=== PATIENT | male | born 1950 | race African-American/Black ===

== ENCOUNTER 2019-05-07 13:34 | Inpatient (IN) | payer MEDICARE, MEDICAID ==
[~2019-05-07] VITALS: Ht 182.9 cm; Wt 64.4 kg
[2019-05-07 15:15] VITALS: BP 130/76
--- NOTE | 2019-05-07 15:16 | NUR ---
ED Nurse Note: ERMD at bedside
--- NOTE | 2019-05-07 15:19 | NUR ---
ED Nurse Note: Pt BIBA for failure to thrive per facility MD. Pt VSS, pt aao x 1; ems stated that pt was able to eat full meal prior to arriving at ED. Pt came home skilled nursing facility. Awaiting ERMD at bedside. Pt states that he does not wish to be in ED; resistive to care.
[2019-05-07] MEDS ORDERED: LORazepam Inj 2mg/ml 1ml IM ONE (15:30)
--- NOTE | 2019-05-07 15:32 | Emergency Room Report ---
History of Present Illness General Chief Complaint: General Complaint Source: Medical Record, EMS Present Illness HPI Patient is a 68-year-old male past medical history of hypertension, dementia, hyperlipidemia, anemia, depression, anxiety, schizophrenia, bipolar disorder and Parkinson's disease who was brought in from his extended care facility by EMS for failure to thrive. Per EMS patient has had unintentional weight loss and primary physician sent him in for work-up including cancer rule out. Unable to obtain further history from the patient as he is minimally verbal in the emergency room. COVID-19 risk:Travel to affect: No Has patient experienced patino: No Allergies: Coded Allergies: No Known Allergies (Unverified , 05/07/19) Patient History Past Medical History: other - Hypertension, dementia, hyperlipidemia, anemia, depression, anxiety, schizophrenia, bipolar disorder, Parkinson's disease Past Surgical History: none - Per chart review Nursing Documentation-PMH Hx Hypertension: Yes Review of Systems All Other Systems: limited Physical Exam Vital Signs Date Time Temp Pulse Resp B/P (MAP) Pulse Ox O2 Delivery O2 Flow Rate FiO2 05/07/19 13:39 98.8 72 16 130/76 (94) 97 Room Air Sp02 EP Interpretation: reviewed, normal General Appearance: no apparent distress, alert, non-toxic, other - Constant involuntary movements Head: normocephalic, atraumatic Eyes: bilateral eye normal inspection, bilateral eye PERRL ENT: hearing grossly normal, normal pharynx, no angioedema Neck: full range of motion, supple/symm/no masses Respiratory: chest non-tender, lungs clear, normal breath sounds, speaking full sentences Cardiovascular #1: regular rate, rhythm, no edema Gastrointestinal: normal bowel sounds, non tender, soft, non-distended, no guarding, no rebound Rectal: deferred Genitourinary: normal inspection, no CVA tenderness Musculoskeletal: back normal, normal range of motion, calf tenderness, non- tender Skin: no rash Lymphatic: no adenopathy Medical Decision Making Diagnostic Impression: Primary Impression: Failure to thrive Additional Impression: Weight loss ER Course Patient was uncooperative initially with laboratory testing. Patient given 2 mg of IV Ativan which helped his un-voluntary movements. He is resting comfortably in bed. Labs demonstrate no significant acute abnormalities. Patient to be admitted for further treatment and evaluation of his failure to thrive and unexplained weight loss. EKG Diagnostic Results EKG Time: 16:59 EP Interpretation: MD Shabana Rate: bradycardiac Rhythm: other - sinus bradycardia ST Segments: no acute changes ASA given to the pt in ED: No Last Vital Signs Date Time Temp Pulse Resp B/P (MAP) Pulse Ox O2 Delivery O2 Flow Rate FiO2 05/07/19 15:15 72 16 Room Air 05/07/19 15:15 98.8 130/76 97 Disposition: PLACE IN OBSERVATION Condition: Critical Physician Consult: Lori De Jesus M.D. May 07, 2019 15:32
[2019-05-07] MEDS ORDERED: Haloperidol 5mg/ml Inj IM ONE (16:00)
--- NOTE | 2019-05-07 16:00 | NUR ---
ED Nurse Note: all medications administered; pt tolerated well. no s/s of distress noted. no adverse reactions noted.
--- NOTE | 2019-05-07 16:15 | Diagnostic Imaging Report ---
Indication: Dyspnea Comparison: None A single view chest radiograph was obtained. Findings: No definite infiltrate or pulmonary vascular congestion identified. The heart is enlarged. The aorta is mildly enlarged consistent with atherosclerotic vascular disease. The bones are osteopenic. There are thoracic vertebral enthesophytes at multiple levels. Impression: No acute disease
--- NOTE | 2019-05-07 16:30 | NUR ---
ED Nurse Note: all blood work completed and sent to lab
[2019-05-07 17:21] LABS: ANION GAP 7 mmol/L (5-15); BLOOD UREA NITROGEN 20 mg/dL (7-18); CALCIUM 9.6 MG/DL (8.5-10.1); CARBON DIOXIDE 32 MMOL/L (21-32); CHLORIDE 109 MMOL/L (98-107); CREATININE 0.7 MG/DL (0.55-1.30); POTASSIUM 4.1 MMOL/L (3.5-5.1); SODIUM 147 MMOL/L (136-145)
[2019-05-07 17:27] LABS: BASOPHILS % (AUTO) 2.2 % (0.0-2.0); EOSINOPHILS % (AUTO) 5.1 % (0.0-3.0); HEMATOCRIT 41.7 % (42.0-52.0); HEMOGLOBIN 13.6 G/DL (14.2-18.0); LYMPHOCYTES % (AUTO) 32.5 % (20.0-45.0); MEAN CORPUSCULAR VOLUME 95 FL (80-99); MONOCYTES % (AUTO) 4.8 % (1.0-10.0); NEUTROPHILS % (AUTO) 55.3 % (45.0-75.0); PLATELET COUNT 188 K/UL (150-450); RED CELL DISTRIBUTION WIDTH 14.6 % (11.6-14.8); WHITE BLOOD COUNT 4.8 K/UL (4.8-10.8)
[2019-05-07 17:33] LABS: ALANINE AMINOTRANSFERASE 37 U/L (12-78); ALBUMIN/GLOBULIN RATIO 1.3 (1.0-2.7); ALKALINE PHOSPHATASE 87 U/L (46-116); ASPARTATE AMINO TRANSFERASE 28 U/L (15-37); BILIRUBIN,TOTAL 0.9 MG/DL (0.2-1.0); CREATINE KINASE 184 U/L (26-308)
--- NOTE | 2019-05-07 18:46 | NUR ---
ED Nurse Note: pt sleeping in bed, vss no s/s of distress noted.
[2019-05-07 19:05] VITALS: BP 131/70
--- NOTE | 2019-05-07 19:05 | NUR ---
ED Nurse Note: Received report from Debbie CORTES. Pt seen sleeping in bed. Breathing even and unlabored. No SOB.
[2019-05-07] MEDS ORDERED: ASPIRIN81 MG ORAL (20:20)
[2019-05-07] MEDS ORDERED: MIRTAZAPINE7.5 MG ORAL (20:20)
[2019-05-07] MEDS ORDERED: BENZTROPINE MESY1 MG ORAL (20:20)
[2019-05-07] MEDS ORDERED: DEPAKOTE250 MG PO (20:20)
[2019-05-07] MEDS ORDERED: ATORVASTATIN CA20 MG ORAL (20:20)
[2019-05-07] MEDS ORDERED: LEVOCARNITINE MC (20:20)
[2019-05-07] MEDS ORDERED: SEROQUEL100 MG ORAL (20:20)
[2019-05-07] MEDS ORDERED: LEXAPRO10 MG ORAL (20:20)
--- NOTE | 2019-05-07 20:23 | NUR ---
ED Nurse Note: Pt unable to provide urine specimen. Will cont to encourage.
--- NOTE | 2019-05-07 21:35 | NUR ---
TRANSFER TO FLOOR: Patient transferred to as ordered, per Dr Sprague. Report given to SEBASTIAN Franks. Belongings and medications given to . Family and or S/O informed of transfer.
[2019-05-07 21:42] LABS: APPEARANCE,URINE CLEAR; BILIRUBIN, URINE NEGATIVE (NEGATIVE); COLOR,URINE PALE YELLOW; GLUCOSE, URINE (UA) NEGATIVE (NEGATIVE); KETONES,URINE NEGATIVE (NEGATIVE); LEUKOCYTE ESTERASE ,URINE NEGATIVE (NEGATIVE); NITRITE,URINE NEGATIVE (NEGATIVE); PH,URINE 6.5 (4.5-8.0); PROTEIN,URINE NEGATIVE (NEGATIVE); UROBILINOGEN,URINE NORMAL MG/DL (0.0-1.0)
[2019-05-07] MEDS ORDERED: Acetaminophen 500mg (ES) tab ORAL PRN (23:00)
[2019-05-07 23:30] VITALS: BP 115/67
[2019-05-07] MEDS ORDERED: MULTIVITAMINS1 EAC2 ORAL (23:31)
[2019-05-07] MEDS ORDERED: MILK OF MA2400 MG/10 ORAL (23:31)
[2019-05-07] MEDS ORDERED: MYLANTA MAXIMU355 ML PO (23:31)
[2019-05-07] MEDS ORDERED: AMLODIPINE BESY10 MG ORAL (23:31)
[2019-05-07] MEDS ORDERED: Milk of Magnesia 30ml Ud ORAL PRN (23:45)
--- NOTE | 2019-05-08 02:44 | NUR ---
NURSE NOTES: Received patient from ER via gurney assisted by a staff. Patient doesn't talk when being asked. No signs of pain. No SOB noted. With IV on the right AC g.20. Patient is a fall risk. Put patient in yellow gown, yellow socks, education done. Charge nurse made aware. Spoke with Dr. Sprague, obtained admission orders and carried out. Patient moved to a room closer to nursing station. Instructed to use call light for assistance. Call light in reach. Bed in lowest, lock engaged and alarm on.
[2019-05-08 04:00] VITALS: BP 114/70
--- NOTE | 2019-05-08 05:27 | NUR ---
NURSE NOTES: Patient walked to the bathroom couple times, assistance needed. Safety measures done at all times. Encouraged pt the use of urinal.
--- NOTE | 2019-05-08 05:50 | NUR ---
NURSE NOTES: Patient refused blood draw per lab staff.
--- NOTE | 2019-05-08 06:56 | Consultation ---
History of Present Illness General Chief Complaint: General Complaint Present Illness Allergies: Coded Allergies: No Known Allergies (Unverified , 05/07/19) Medication History Scheduled Amlodipine Besylate* (Amlodipine Besylate*), 10 MG ORAL DAILY, (Reported) Aspirin* (Aspirin*), 81 MG ORAL DAILY, (Reported) Atorvastatin Calcium* (Atorvastatin Calcium*), 20 MG ORAL BEDTIME, (Reported) Benztropine Mesylate* (Benztropine Mesylate*), 0.5 MG ORAL BID, (Reported) Divalproex Sodium* (Depakote*), 125 MG PO Q12HR, (Reported) Escitalopram Oxalate* (Lexapro*), 10 MG ORAL DAILY, (Reported) Levocarnitine (Levocarnitine), 330 GM MC TID, (Reported) Mirtazapine* (Mirtazapine*), 7.5 MG ORAL BEDTIME, (Reported) Multivitamins* (Multivitamins*), 1 TAB ORAL DAILY, (Reported) Quetiapine Fumarate* (Seroquel*), 100 MG ORAL HS, (Reported) Scheduled PRN Mag Hydrox/Aluminum Hyd/Simeth (Mylanta Maximum Strength Liq), 30 ML PO EVERY 4 HOURS PRN for GI Distress, (Reported) Magnesium Hydroxide* (Milk Of Magnesia*), 30 ML ORAL DAILY PRN for Constipation, (Reported) Patient History Healthcare decision maker Resuscitation status Full Code Advanced Directive on File Physical Exam Last 24 Hour Vital Signs Date Time Temp Pulse Resp B/P (MAP) Pulse Ox O2 Delivery O2 Flow Rate FiO2 05/08/19 04:00 98.6 61 18 114/70 (85) 98 05/08/19 00:40 Room Air 05/07/19 23:30 97.3 52 20 115/67 (83) 100 05/07/19 21:35 97.9 81 19 131/70 98 Room Air 05/07/19 19:05 97.9 81 19 131/70 98 Room Air 05/07/19 15:15 72 16 Room Air 05/07/19 15:15 98.8 72 16 130/76 97 Room Air 05/07/19 13:39 98.8 72 16 130/76 (94) 97 Room Air Intake and Output 05/07/19 05/08/19 19:00 07:00 Intake Total 1000 ml Balance 1000 ml Intake Oral 0 ml IV Total 1000 ml # Voids 3 Laboratory Tests Test 05/07/19 16:40 05/07/19 21:33 White Blood Count 4.8 K/UL (4.8-10.8) Red Blood Count 4.40 M/UL (4.70-6.10) L Hemoglobin 13.6 G/DL (14.2-18.0) L Hematocrit 41.7 % (42.0-52.0) L Mean Corpuscular Volume 95 FL (80-99) Mean Corpuscular Hemoglobin 30.9 PG (27.0-31.0) Mean Corpuscular Hemoglobin Concent 32.7 G/DL (32.0-36.0) Red Cell Distribution Width 14.6 % (11.6-14.8) Platelet Count 188 K/UL (150-450) Mean Platelet Volume 9.0 FL (6.5-10.1) Neutrophils (%) (Auto) 55.3 % (45.0-75.0) Lymphocytes (%) (Auto) 32.5 % (20.0-45.0) Monocytes (%) (Auto) 4.8 % (1.0-10.0) Eosinophils (%) (Auto) 5.1 % (0.0-3.0) H Basophils (%) (Auto) 2.2 % (0.0-2.0) H Prothrombin Time 10.6 SEC (9.30-11.50) Prothromb Time International Ratio 1.0 (0.9-1.1) Activated Partial Thromboplast Time 27 SEC (23-33) Sodium Level 147 MMOL/L (136-145) H Potassium Level 4.1 MMOL/L (3.5-5.1) Chloride Level 109 MMOL/L (98-107) H Carbon Dioxide Level 32 MMOL/L (21-32) Anion Gap 7 mmol/L (5-15) Blood Urea Nitrogen 20 mg/dL (7-18) H Creatinine 0.7 MG/DL (0.55-1.30) Estimat Glomerular Filtration Rate > 60 mL/min (>60) Glucose Level 101 MG/DL (74-106) Lactic Acid Level 0.90 mmol/L (0.4-2.0) Calcium Level 9.6 MG/DL (8.5-10.1) Magnesium Level 2.2 MG/DL (1.8-2.4) Total Bilirubin 0.9 MG/DL (0.2-1.0) Aspartate Amino Transf (AST/SGOT) 28 U/L (15-37) Alanine Aminotransferase (ALT/SGPT) 37 U/L (12-78) Alkaline Phosphatase 87 U/L (46-116) Total Creatine Kinase 184 U/L (26-308) Troponin I 0.000 ng/mL (0.000-0.056) Pro-B-Type Natriuretic Peptide 49 pg/mL (0-125) Total Protein 7.0 G/DL (6.4-8.2) Albumin 4.0 G/DL (3.4-5.0) Globulin 3.0 g/dL Albumin/Globulin Ratio 1.3 (1.0-2.7) Urine Color Pale yellow Urine Appearance Clear Urine pH 6.5 (4.5-8.0) Urine Specific Mallie 1.010 (1.005-1.035) Urine Protein Negative (NEGATIVE) Urine Glucose (UA) Negative (NEGATIVE) Urine Ketones Negative (NEGATIVE) Urine Blood Negative (NEGATIVE) Urine Nitrite Negative (NEGATIVE) Urine Bilirubin Negative (NEGATIVE) Urine Urobilinogen Normal MG/DL (0.0-1.0) Urine Leukocyte Esterase Negative (NEGATIVE) Microbiology Date/Time Source Procedure Growth Status 05/07/19 16:40 Nasal Nares - Final Complete 05/07/19 16:40 Nasal Nares - Final Complete Height (Feet): 6 Height (Inches): 0.00 Weight (Pounds): 142 Medications Current Medications Medications (Trade) Dose Ordered Sig/Alley Route PRN Reason Start Time Stop Time Status Last Admin Dose Admin Acetaminophen (Tylenol) 500 mg Q4H PRN ORAL Mild Pain/Temp > 100.5 05/07/19 23:00 06/06/19 22:59 Al Hydroxide/Mg Hydroxide (Mylanta) 30 ml Q4H PRN ORAL GI distress 05/07/19 23:45 06/06/19 23:44 Amlodipine Besylate (Norvasc) 10 mg DAILY ORAL 05/08/19 09:00 06/07/19 08:59 Aspirin (ASA) 81 mg DAILY ORAL 05/08/19 09:00 06/22/19 08:59 Atorvastatin Calcium (Lipitor) 20 mg BEDTIME ORAL 05/08/19 21:00 08/06/19 20:59 Benztropine Mesylate (Cogentin) 0.5 mg BID ORAL 05/08/19 09:00 06/07/19 08:59 Divalproex Sodium (Depakote) 125 mg Q12HR ORAL 05/08/19 09:00 06/07/19 08:59 Escitalopram Oxalate (Lexapro) 10 mg DAILY ORAL 05/08/19 09:00 06/07/19 08:59 Levocarnitine (L-Carnitine) 330 mg TID ORAL 05/08/19 09:00 08/06/19 08:59 Magnesium Hydroxide (Mom) 30 ml DAILY PRN ORAL Constipation 05/07/19 23:45 06/06/19 23:44 Mirtazapine (Remeron) 7.5 mg BEDTIME ORAL 05/08/19 21:00 08/06/19 20:59 Multivitamins (Multivitamins) 1 tab DAILY ORAL 05/08/19 09:00 06/07/19 08:59 Quetiapine Fumarate (SEROqueL) 100 mg BEDTIME ORAL 05/08/19 21:00 06/22/19 20:59 Sodium Chloride 1,000 ml @ 60 mls/hr [id number] IV 05/07/19 23:15 06/06/19 23:14 05/08/19 00:10 Vitamin D (Vitamin D) 2,000 intlu DAILY ORAL 05/08/19 09:00 06/07/19 08:59 Assessment/Plan Assessment/Plan: Hematology Consultation REQ MD: Yevgeniy Chatterjee Chief Complaint: General Complaint RFC: Anemia eval, ftt DOS: 05/08/2019 ID Patient is a 68-year-old male past medical history of hypertension, dementia, hyperlipidemia, anemia, depression, anxiety, schizophrenia, bipolar disorder and Parkinson's disease who was brought in from his extended care facility by EMS for failure to thrive. Per EMS patient has had unintentional weight loss and primary physician sent him in for work-up including cancer rule out. Unable to obtain further history from the patient as he is minimally verbal in the emergency room. He is very resistive to care, I tried to talk to him re getting a ct scan but he is refusing and yelling at me, also refusing labs. COVID-19 risk:Travel to affect: No Has patient experienced patino: No Allergies: Coded Allergies: No Known Allergies (Unverified , 05/07/19) Past Medical History: other - Hypertension, dementia, hyperlipidemia, anemia, depression, anxiety, schizophrenia, bipolar disorder, Parkinson's disease Past Surgical History: none - Per chart review Nursing Documentation-PMH Hx Hypertension: Yes Review of systems: difficult to obtain PE Vitals: reviewed, normal General Appearance: no apparent distress, alert, non-toxic, other - Constant involuntary movements HEENT: nc, at Neck: full range of motion, supple/symm/no masses, supple Resp: chest non-tender, lungs clear, normal breath sounds Cv: regular rate, rhythm, no edema Gi: normal bowel sounds, non tender, soft, non-distended Rectal: deferred Genitourinary: normal inspection, no CVA tenderness Lymphatic: no adenopathy Labs: noted Imaging: reviewed Assessment and Recs: # Failure to thrive --> has had recent weight loss, will need further eval but is currently refusing --> will attempt at a ct c/a/p but again refusing --> tumor markers ordered --> daily weights as needed --> PT daily --> monitor if needs mirtazapine # Anemia of chronic disease --> labs have been noted --> no bleeding at this time --> consider transf as needed --> no hemolysis is seen # Noncompliance/uncooperative initially with laboratory testing. --> again stressed importance of workup, he refuses --> Patient given 2 mg of IV Ativan which helped his un-voluntary movements. # Sinus bradycardia --> further w/u as needed per cards # Hypernatremia --> per Dr. Alejandre # Azotemia --> recommend ivf Staff and rn, appreciate consultation Jovanny Hawkins MD May 08, 2019 06:56
[2019-05-08] MEDS ORDERED: Omnipaque-300 100ml vial INJ PRN (07:00)
--- NOTE | 2019-05-08 07:25 | NUR ---
NURSE NOTES: received report from SEBASTIAN Villalba. patient in bed. alert. not answering question. no respiratory distress noted no pain at this time. IV RAC 20 running 1/2ns@60. fall risk. yellow socks. call light within reach. alarm on. educated patient call for assist bathroom. will continue to provide plan of care.
--- NOTE | 2019-05-08 07:41 | NUR ---
HAND-OFF: Report given to SEBASTIAN Sutherland.
--- NOTE | 2019-05-08 07:42 | NUR ---
NURSE NOTES: Endorsed to AM nurse pt is high fall risk.
[2019-05-08 08:00] VITALS: BP 118/74
--- NOTE | 2019-05-08 08:24 | NUR ---
NURSE NOTES: patient refused morning lab and CT scan. Explained risks and benefits. offered several times. patient did not listen. kept saying no. Notified Dr. Hawkins and waiting for further order.
[2019-05-08] MEDS: levOCARNitine 330mg tab ORAL SCH ×3 (09:00→17:28)
[2019-05-08] MEDS: Aspirin Baby 81mg ORAL SCH (09:21)
[2019-05-08] MEDS: Vitamin D 1000 IU Tab ORAL SCH (09:23)
[2019-05-08] MEDS: Benztropine 1mg tab ORAL SCH ×2 (09:23→17:28)
--- NOTE | 2019-05-08 10:10 | NUR ---
NURSE NOTES: Dr. Estrella will see the patient for psy consult.
--- NOTE | 2019-05-08 10:35 | NUR ---
HAND-OFF: Report given to SEBASTIAN Amos.
--- NOTE | 2019-05-08 10:38 | NUR ---
NURSE NOTES: Report received from Koko CORTES. Patient is awake and alert x 1. Assisted patient back to bed after voiding in bathroom. Endorsed to Dandre CORTES that patient is on contact and droplet precautions due to covid 19 rule out. Patient noted to have 20 keith IV in right ac. Fluids not running at moment due to patient being agitated and not staying in bed. Will contact primary for restraints for patient safety due to him being a high fall risk. Patient on room air, does not appear to be in respiratory distress at this time. Bed locked, alarmed, and in lowest position. Call light in reach. Will continue to follow plan of care.
--- NOTE | 2019-05-08 11:44 | NUR ---
RD ASSESSMENT & RECOMMENDATIONS SEE CARE ACTIVITY FOR COMPLETE ASSESSMENT DAILY ESTIMATED NEEDS: Needs based on FTT, Wt loss/ 64kg 30-35 kcals/kg 8281-4947 total kcals 1-1.5 g protein/kg 64-96 g total protein 25-30 mL/kg 6532-2791 total fluid mLs NUTRITION DIAGNOSIS: Increased kcal/prot needs R/T unintentional wt loss as evidenced by pt admitted w/ FTT dx w/ + unintentional wt loss per MD, known amount and time frame. CURRENT DIET:REGULAR + snacks BID in b/w meals + HS PO DIET RECOMMENDATIONS: Liberalized REGULAR/ texture per [employer] or as tolerated ADDITIONAL RECOMMENDATIONS: * Calibrated bedscale wt for accurate CBW, rec daily wt monitoring * Monitor PO intake closely -> Consider Justin Count X 48 hrs when out of isolation/ COVID-19 ruled out -> Observed 100% consumed breakfast on 05/07 AM. * Ensure Enlive BID w/ meals * Snacks BID in b/w meals + HS * MVI x 1 as supplement
[2019-05-08 12:00] VITALS: BP 132/79
--- NOTE | 2019-05-08 12:05 | NUR ---
NURSE NOTES: Patient found to be climbing out of bed. patient no longer in restraints. Patient removed IV. Safely assisted patient to bathroom. Safely assisted patient back to bed. No injury. Restraints reapplied. After several attempts by both Dandre CORTES and Gómez CORTES, no IV access. Doctor Celestine beckman.
--- NOTE | 2019-05-08 13:12 | NUR ---
CASE MANAGEMENT:INITIAL REVIEW 68 YR OLD MALE BIBA FROM [facility] CC;GENERAL COMPLAINT SI;FAILURE TO THRIVE 98.8 52 20 131/70 97% ON RA NA 147 CL 109 BUN 20 UA = NEGATIVE CXR ~ NO ACUTE PROCESS IS;IVF NS BOLUS ATIVAN IM ONCE HALDOL IM ONCE ADMITTED TO MED SURG MED SURG STATUS DCP;FROM [facility]
[2019-05-08] MEDS: LORazepam 1mg tab ORAL PRN ×2 (13:44→20:41)
--- NOTE | 2019-05-08 13:45 | NUR ---
NURSE NOTES: Ativan and Lexapro given per MD orders. Will reassess patients anxiety level.
[2019-05-08 16:00] VITALS: BP 129/88
--- NOTE | 2019-05-08 16:15 | Consultation ---
DATE OF CONSULTATION: 05/08/2019 PULMONARY CONSULTATION HISTORY OF PRESENT ILLNESS: This is a 68-year-old male with history of hypertension, dementia, anemia, schizophrenia, and Parkinson's, who was brought from his extended care facility with a history of failure to thrive. The patient is a very poor historian and unable to provide any history. There is no travel history. The patient denies any cough, shortness of breath. ALLERGIES: None. PAST HISTORY: Dementia, hypertension, hyperlipidemia, anemia, schizophrenia, bipolar disorder, Parkinson's disorder. PAST SURGICAL HISTORY: None reported. HOME MEDICATIONS: Home medications reviewed and reconciled in the chart. It is noted that he is on amlodipine, aspirin, Lipitor, Cogentin, Depakote, Marinol, Lexapro, Remeron, Seroquel, vitamin D, Haldol and Ativan. REVIEW OF SYSTEMS: Unreliable. PHYSICAL EXAMINATION: GENERAL: Reveals a 68-year-old male. HEENT: Unremarkable. VITAL SIGNS: Blood pressure is 118/70, O2 saturation is 96% on room air, heart rate 66, he is afebrile. CHEST: Clear breath sounds bilaterally. HEART: Normal heart sounds. ABDOMEN: Soft. EXTREMITIES: There is no edema. LABORATORY TESTING: Shows normal white count, hemoglobin 13.6. Chemistries showed sodium 147. Coags and urinalysis negative. IMAGING STUDIES: The patient underwent chest x-ray, which showed atelectasis bilaterally. IMPRESSION: 1. Failure to thrive. 2. Hypernatremia. 3. No evidence for pneumonia or concern regarding coronavirus. DISCUSSION: At this time, he is considered low risk for coronavirus. The only risk factor assisted care facility. Defer further documentation per ID specialist. We will follow as director of medical education. Hematology consultation is noted. Maurice Bourgeois M.D. DR: Melissa JOB#: [id number] CC:
--- NOTE | 2019-05-08 17:00 | Consultation ---
DATE OF CONSULTATION: 05/08/2019 INFECTIOUS DISEASES CONSULTATION CONSULTING PHYSICIAN: Jhony Hamlin M.D. PRIMARY ATTENDING PHYSICIAN: Yevgeniy Sprague M.D. REASON FOR CONSULTATION: Isolation precaution. HISTORY OF PRESENT ILLNESS: The patient is a 68-year-old male admitted from long-term for further treatment of weight loss to rule out cancer. During ER evaluation, he was put on isolation for coronavirus disease 19 and test for coronavirus was sent. PAST MEDICAL HISTORY: Significant for dementia, hypertension, hyperlipidemia, schizophrenia, anemia, Parkinson disease. ALLERGIES: No known drug allergies. MEDICATIONS: Atorvastatin, mirtazapine, Seroquel, Marinol, Ativan, Lexapro, amlodipine, aspirin, benztropine, Depakote, multivitamin, sodium chloride, Tylenol. SOCIAL HISTORY: Single. skilled nursing resident. REVIEW OF SYSTEMS: The patient has no complaint, agitated, not very cooperating, taking out the IV line. PHYSICAL EXAMINATION: VITAL SIGNS: Temperature 98.2, pulse 60, blood pressure 132/79. GENERAL APPEARANCE: No acute distress. Seems to be thin. HEART: Normal rate. LUNGS: Clear. ABDOMEN: Soft. EXTREMITIES: No edema. LABORATORY AND DIAGNOSTIC DATA: Sodium 147, potassium 4.1, chloride 109, bicarbonate 30, BUN 20, creatinine 0.7, glucose 101. WBC 4.8, hemoglobin 13.6, hematocrit 41.7, and platelets is 188. Chest x-ray was negative. IMPRESSION: Failure to thrive with weight loss, seems multifactorial, has dementia, psychosis, Parkinson disease, anemia, hyperlipidemia. The patient does not have the criteria for testing and isolation for coronavirus disease 19 so recommendation is to stop airborne isolation. Case was discussed with nurse. At the end of my exam, I thank Dr. Sprague, for involving me in the care of this patient. Jhony Hamlin M.D. DR: Sabina JOB#: [id number] CC: JEFFERY
--- NOTE | 2019-05-08 17:00 | NUR ---
NURSE NOTES: Patient still getting out of bed without calling. Patient calm and more cooperative with staff. Patient less anxious and combative.
--- NOTE | 2019-05-08 17:15 | Consultation ---
DATE OF CONSULTATION: 05/08/2019 CONSULTING PHYSICIAN: Chilango Hunter M.D. CHIEF COMPLAINT: Failure to thrive. HISTORY OF PRESENT ILLNESS: This is a 68-year-old longterm patient, who has numerous medical problems including a history of psychiatric disorder of schizophrenia, bipolar disorder, and depression, was transferred to the hospital for failure to thrive. Since admission, the patient apparently has been diagnosed with COVID-19 positive. Referral for GI was for evaluation of failure to thrive. PAST MEDICAL HISTORY: 1. Hypertension. 2. Hypercholesterolemia. 3. Psychiatric disorder including schizophrenia and depression. 4. Anemia. 5. Dementia. 6. Anxiety. 7. Parkinson disease. FAMILY HISTORY: Noncontributory. PAST SURGICAL HISTORY: None. REVIEW OF SYSTEMS: A 10-point review of systems was performed and pertinent positives in HPI. SOCIAL HISTORY: He currently lives in a longterm. No history of tobacco, alcohol, or drug abuse. PHYSICAL EXAMINATION: VITAL SIGNS: Temperature is 98.8, pulse 66, respirations 18, and blood pressure 118/74. HEENT: Normocephalic and atraumatic. Sclerae anicteric. NECK: Supple. No evidence of obvious lymphadenopathy. CARDIOVASCULAR: Regular rate and rhythm. Plus S1 and S2. LUNGS: Decreased breath sounds bilaterally based on the supine exam. ABDOMEN: Soft, nontender. No rebound. No guarding. No peritoneal sign. EXTREMITIES: No cyanosis, no clubbing, no edema. LABORATORY DATA: White count is 4.8, hemoglobin 13, hematocrit 41, and platelet count 188,000. ASSESSMENT AND PLAN: A 68-year-old male with COVID-19 positive, admitted to the hospital with failure to thrive. Plan at this time, we are going to hold off doing a G-tube placement. We are going to put the patient on Marinol 2.5 mg p.o. t.i.d and increase the dose to 5 mg as tolerated. We are going to order calorie count. The patient to be treated for COVID-19 with supportive care. We will follow the patient on a daily basis and make further recommendation as we go along. Chilango Hunter M.D. DR: ALONDRA JOB#: [id number] CC:
[2019-05-08] MEDS: Dronabinol 2.5mg Cap ORAL SCH (17:28)
--- NOTE | 2019-05-08 18:00 | History and Physical Report ---
DATE OF ADMISSION: 05/07/2019 HISTORY OF PRESENT ILLNESS: The patient is being admitted for failure to thrive, 30 pounds weight loss, for the weight loss workup and failure to thrive. That is the reason the patient got admitted. The patient is a poor historian and agitated. Cannot get any reliable history from the patient. However, denies pain. Denies nausea, vomiting, or diarrhea. No fever or chills. Denies shortness of breath. Denies cough. Again is a poor historian. PAST MEDICAL HISTORY: Psychosis, dementia, hyperlipidemia, mood disorder. PAST SURGICAL HISTORY: None known. ALLERGIES: No known allergies. MEDICATIONS: Lexapro, Depakote, Cogentin, Lipitor, aspirin, amlodipine, mirtazapine, and Seroquel. FAMILY HISTORY: Noncontributory. SOCIAL HISTORY: No history of alcohol or illicit drugs. Comes from a alf. REVIEW OF SYSTEMS: HEENT: Denies headaches. RESPIRATORY: Denies shortness of breath. Denies cough. CARDIOVASCULAR: Denies chest pain. GASTROINTESTINAL: Denies nausea, vomiting, or diarrhea. Does have poor appetite. CENTRAL NERVOUS SYSTEM: Denies any change in speech pattern; however is a very poor historian. Cannot rely upon his history. PHYSICAL EXAMINATION: VITAL SIGNS: Temperature is 98.8, pulse is 66, blood pressure is 118/74. HEENT: PERRLA. NECK: Supple. No lymphadenopathy. CHEST: Clear to auscultation. CARDIOVASCULAR: Regular rate and rhythm. No murmurs or extra sounds. GASTROINTESTINAL: Soft, nontender, nondistended. No organomegaly. EXTREMITIES: No edema. Moves all four extremities. Sensory intact to light touch. Reflexes on both sides. LABORATORY DATA: WBC of 4.8, hemoglobin of 13.6, platelets 188,000. Sodium 147, potassium 4.1, BUN of 20, creatinine 0.7, glucose 101. ASSESSMENT AND PLAN: Weight loss of 30 pounds, failure to thrive. I have consulted Dr. العراقي as well as Dr. Estrella as well as Dr. Hawkins for the workup of agitation and dementia as well as for failure to thrive and weight loss workup to rule out cancer. Yevgeniy Sprague M.D. DR: ROSALINA JOB#: [id number] CC:
--- NOTE | 2019-05-08 19:31 | NUR ---
HAND-OFF: Report given to Jordyn RN. Endorsed that patient is a high fall risk and requires frequent checks. Endorsed that patient is on restraints, no order renewal needed at this time.
[2019-05-08 20:00] VITALS: BP 115/65
--- NOTE | 2019-05-08 20:00 | NUR ---
NURSE NOTES: RECEIVED PATIENT FROM SEBASTIAN HAN. PATIENT IS AWAKE, AAOX1, ON ROOM AIR, NO ACUTE DISTRESS NOTED. PATIENT IS A HIGH FALL RISK, TRY TO GET OUT OF BED. PATIENT IS CURRENTLY ON BILATERAL SOFT WRIST RESTRAINTS, PULSES PRESENT, NO REDNESS NOTED. PATIENT IS PLACED IN ROOM NEAR NURSING STATION, RN COMMUNICATED WITH BOTTOM CRANE OPERATOR AND OTHER STAFF MEMBERS TO FREQUENTLY ROUNDS ON PATIENT. BED IS LOCKED AND LOW, BED ALARMS ACTIVE, SIDE RAILS UP X2, AND CALL LIGHT IS WITHIN REACH. NEW IV ACCESS ESTABLISHED ON RIGHT UPPER ARM, INTACT AND PATENT. PLACED NEW CONDOM CATH ON, INTACT AND DRAINING WELL. WILL CONTINUE TO MONITOR PATIENT CLOSELY.
[2019-05-08] MEDS: Atorvastatin 20mg tab ORAL SCH (20:42)
--- NOTE | 2019-05-08 21:30 | NUR ---
NURSE NOTES: CALLED AND LEFT MESSAGE WITH DR. WRIGHT REGARDING PATIENT'S ISOLATION STATUS. RETURNED CALL AND SPOKE TO CHARGE NURSE CHRISTO. PATIENT IS CLEARED FOR AIRBORNE, DROPLET, AND CONTACT PRECAUTION. CHARGE NURSE CHRISTO COMMUNICATED WITH RADIOLOGY ABOUT ISOLATION STATUS. PATIENT WILL BE NPO AT MIDNIGHT FOR CT CHEST/ABDOMEN WITH CONTRAST IN AM.
--- NOTE | 2019-05-08 21:45 | Consultation ---
DATE OF CONSULTATION: 05/08/2019 CONSULTING PHYSICIAN: Shira Estrella M.D. HISTORY OF PRESENT ILLNESS: The patient is a 68-year-old male with a history of multiple medical issues including dementia, hypertension, depression, anxiety, and schizophrenia who has been admitted to the hospital for medical stabilization. The patient was placed by emergency room doctor on isolation to rule out Coronavirus. The patient's x-ray was not evident of any infiltrates and appeared to be normal. The patient is confused, disoriented. He was agitated earlier. He was given medication. Also placed him on Seroquel and lorazepam. PAST PSYCHIATRIC HISTORY: Depression, dementia. PAST MEDICAL HISTORY: Significant for dementia as well as hypertension, hyperlipidemia, anemia, and Parkinson disease. ALLERGIES: No known drug allergies. SUBSTANCE ABUSE HISTORY: No known history of illicit drug use or alcohol. MENTAL STATUS EXAMINATION: The patient is alert, confused, disoriented. Mood is agitated. Affect is flat. Thought process, there is a paucity of thought content. Thought content, no suicidal or homicidal ideation. Cognition is impaired. Insight and judgment is impaired. ASSESSMENT: [place] I Schizoaffective disorder, bipolar type. Dementia. [place] II Deferred. [place] III As above. [place] IV Low. [place] V 20. PLAN: 1. We will start the patient on Depakote 500 outside of the hospital. 2. Seroquel. 3. Ativan p.r.n. 4. Continue to follow and readjust the medications. Shira Estrella M.D. DR: NEPTALI JOB#: [id number] CC: JEFFERY
[2019-05-09] VITALS: BP 120/68
[2019-05-09 04:00] VITALS: BP 126/64
[2019-05-09] MEDS: LORazepam 1mg tab ORAL PRN (06:07)
--- NOTE | 2019-05-09 06:59 | General Progress Note ---
Assessment/Plan Assessment/Plan: 1. Hypertension. 2. Hypercholesterolemia. 3. Psychiatric disorder including schizophrenia and depression. 4. Anemia. 5. Dementia. 6. Anxiety. 7. Parkinson disease. 8. FTT psych in put appreciated on marinol fu calorie count PEG plans on hold for now Subjective ROS Limited/Unobtainable: Yes Allergies: Coded Allergies: No Known Allergies (Unverified , 05/07/19) Objective Last 24 Hour Vital Signs Date Time Temp Pulse Resp B/P (MAP) Pulse Ox O2 Delivery O2 Flow Rate FiO2 05/09/19 04:00 98.3 76 20 126/64 (84) 98 05/09/19 00:00 98.5 72 18 120/68 (85) 98 05/08/19 21:00 Room Air 05/08/19 20:00 98.0 69 20 115/65 (82) 99 05/08/19 16:03 Room Air 05/08/19 16:00 98.9 62 18 129/88 (102) 99 05/08/19 12:00 98.2 60 18 132/79 (96) 94 05/08/19 09:21 66 118/74 05/08/19 09:00 Room Air 05/08/19 08:00 98.8 66 18 118/74 (89) 98 Intake and Output 05/08/19 05/09/19 19:00 07:00 Intake Total 1040 ml 600 ml Output Total 1 ml Balance 1039 ml 600 ml Intake Oral 800 ml IV Total 240 ml 600 ml Output Stool Total 1 ml # Voids 5 5 # Bowel Movements 1 1 Height (Feet): 6 Height (Inches): 0.00 Weight (Pounds): 142 General Appearance: alert EENT: normal ENT inspection Neck: supple Cardiovascular: normal rate Respiratory/Chest: decreased breath sounds Abdomen: normal bowel sounds, non tender, soft Extremities: non-tender Chilango Hunter MD May 09, 2019 06:59
--- NOTE | 2019-05-09 07:40 | NUR ---
NURSE NOTES: Received patient in bed awake. No SOB or acute distress. IV line intact and patent. HOB elevated. Bed locked in lowest position. Call light within reach. Airborne, droplet and contact precaution observed. Will continue plan of care. Addendum: 05/09/19 at 0844 by Charmaine Hyde RN Above notes intended for a different patient. Received patient in bed asleep. Bilateral wrist restraints on, pulses palpable, no skin issues noted on site. Condom catheter in place. IV line intact and patent. No SOB or acute distress. Kept on NPO post midnight for CT scan of the chest abdomen pelvis but patient did not take the oral contrast, bottle full still at bedside. Tevin of CT scan aware, will hold procedure for now. Dr Hawkins informed, awaiting response. HOB elevated. Bed locked in lowest position. Call light within reach. Will continue plan of care.
--- NOTE | 2019-05-09 07:42 | NUR ---
HAND-OFF: Report given to SEBASTIAN Montano.
[2019-05-09 08:00] VITALS: BP 121/63
--- NOTE | 2019-05-09 08:02 | Hematology/Onc Progress Note ---
Assessment/Plan Assessment/Plan Assessment and Recs: # Failure to thrive --> has had recent weight loss, will need further eval but is currently refusing --> will attempt at a ct c/a/p but again refusing --> tumor markers ordered --> daily weights as needed --> PT daily --> monitor if needs mirtazapine # Anemia of chronic disease --> labs have been noted --> no bleeding at this time --> consider transf as needed --> no hemolysis is seen # Noncompliance/uncooperative initially with laboratory testing. --> again stressed importance of workup, he refuses --> Patient given 2 mg of IV Ativan which helped his un-voluntary movements. # Sinus bradycardia --> further w/u as needed per cards # Hypernatremia --> per Dr. Alejandre # Azotemia --> recommend ivf DW Staff and rn, appreciate consultation Subjective Constitutional: Denies: no symptoms, chills, fever, malaise, weakness, other HEENT: Denies: no symptoms, eye pain, blurred vision, tearing, double vision, ear pain, ear discharge, nose pain, nose congestion, throat pain, throat swelling, mouth pain, mouth swelling, other Cardiovascular: Denies: no symptoms, chest pain, edema, irregular heart rate, lightheadedness, palpitations, syncope, other Respiratory: Denies: no symptoms, cough, shortness of breath, SOB with excertion, SOB at rest, sputum, wheezing, other Gastrointestinal/Abdominal: Denies: no symptoms, abdomen distended, abdominal pain, black stools, tarry stools, blood in stool, constipated, diarrhea, difficulty swallowing, nausea, poor appetite, poor fluid intake, rectal bleeding , vomiting, other Neurologic/Psychiatric: Denies: no symptoms, anxiety, depressed, emotional problems, headache, numbness, paresthesia, pre-existing deficit, seizure, tingling, tremors, weakness, other Endocrine: Denies: no symptoms, excessive sweating, flushing, intolerance to cold, intolerance to heat, increased hunger, increased thirst, increased urine, unexplained weight gain, unexplained weight loss, other Hematologic/Lymphatic: Denies: no symptoms, anemia, easy bleeding, easy bruising, adenopathy, other Allergies: Coded Allergies: No Known Allergies (Unverified , 05/07/19) Subjective 05/08 on marinol, peg still on hold, no bleeding Objective Objective Current Medications Medications (Trade) Dose Ordered Sig/Alley Route PRN Reason Start Time Stop Time Status Last Admin Dose Admin Acetaminophen (Tylenol) 500 mg Q4H PRN ORAL Mild Pain/Temp > 100.5 05/07/19 23:00 06/06/19 22:59 Al Hydroxide/Mg Hydroxide (Mylanta) 30 ml Q4H PRN ORAL GI distress 05/07/19 23:45 06/06/19 23:44 Amlodipine Besylate (Norvasc) 10 mg DAILY ORAL 05/08/19 09:00 06/07/19 08:59 05/08/19 09:21 Aspirin (ASA) 81 mg DAILY ORAL 05/08/19 09:00 06/22/19 08:59 05/08/19 09:21 Atorvastatin Calcium (Lipitor) 20 mg BEDTIME ORAL 05/08/19 21:00 08/06/19 20:59 05/08/19 20:42 Barium Sulfate (Readi-Cat 2) 450 ml NOW PRN ORAL Radiology Procedure 05/08/19 07:00 05/10/19 06:48 Benztropine Mesylate (Cogentin) 0.5 mg BID ORAL 05/08/19 09:00 06/07/19 08:59 05/08/19 17:28 Divalproex Sodium (Depakote) 500 mg Q12HR ORAL 05/08/19 21:00 06/07/19 20:59 05/08/19 20:42 Dronabinol (Marinol) 2.5 mg BID ORAL 05/08/19 18:00 08/06/19 17:59 05/08/19 17:28 Iohexol (OMNIPAQUE-300 100ml) 100 ml ONCE PRN INJ RADIOLOGY 05/08/19 07:00 06/07/19 06:59 Levocarnitine (L-Carnitine) 330 mg TID ORAL 05/08/19 09:00 08/06/19 08:59 05/08/19 17:28 Lorazepam (Ativan) 1 mg Q6H PRN ORAL For Anxiety 05/08/19 13:45 05/15/19 13:44 05/09/19 06:07 Magnesium Hydroxide (Mom) 30 ml DAILY PRN ORAL Constipation 05/07/19 23:45 06/06/19 23:44 Mirtazapine (Remeron) 7.5 mg BEDTIME ORAL 05/08/19 21:00 08/06/19 20:59 05/08/19 20:42 Multivitamins (Multivitamins) 1 tab DAILY ORAL 05/08/19 09:00 06/07/19 08:59 05/08/19 09:22 Quetiapine Fumarate (SEROqueL) 100 mg BEDTIME ORAL 05/08/19 21:00 06/22/19 20:59 05/08/19 20:42 Sodium Chloride 1,000 ml @ 60 mls/hr [id number] IV 05/07/19 23:15 06/06/19 23:14 05/08/19 00:10 Vitamin D (Vitamin D) 2,000 intlu DAILY ORAL 05/08/19 09:00 06/07/19 08:59 05/08/19 09:23 Last 24 Hour Vital Signs Date Time Temp Pulse Resp B/P (MAP) Pulse Ox O2 Delivery O2 Flow Rate FiO2 05/09/19 04:00 98.3 76 20 126/64 (84) 98 05/09/19 00:00 98.5 72 18 120/68 (85) 98 05/08/19 21:00 Room Air 05/08/19 20:00 98.0 69 20 115/65 (82) 99 05/08/19 16:03 Room Air 05/08/19 16:00 98.9 62 18 129/88 (102) 99 05/08/19 12:00 98.2 60 18 132/79 (96) 94 05/08/19 09:21 66 118/74 05/08/19 09:00 Room Air 05/08/19 08:00 98.8 66 18 118/74 (89) 98 05/08/19 04:00 98.6 61 18 114/70 (85) 98 05/08/19 00:40 Room Air 05/07/19 23:30 97.3 52 20 115/67 (83) 100 05/07/19 21:35 97.9 81 19 131/70 98 Room Air 05/07/19 19:05 97.9 81 19 131/70 98 Room Air 05/07/19 15:15 72 16 Room Air 05/07/19 15:15 98.8 72 16 130/76 97 Room Air 05/07/19 13:39 98.8 72 16 130/76 (94) 97 Room Air Intake and Output 05/08/19 05/09/19 19:00 07:00 Intake Total 1040 ml 600 ml Output Total 1 ml Balance 1039 ml 600 ml Intake Oral 800 ml IV Total 240 ml 600 ml Output Stool Total 1 ml # Voids 5 5 # Bowel Movements 1 1 Labs Test 05/07/19 16:40 05/07/19 21:33 White Blood Count 4.8 K/UL (4.8-10.8) Red Blood Count 4.40 M/UL (4.70-6.10) Hemoglobin 13.6 G/DL (14.2-18.0) Hematocrit 41.7 % (42.0-52.0) Mean Corpuscular Volume 95 FL (80-99) Mean Corpuscular Hemoglobin 30.9 PG (27.0-31.0) Mean Corpuscular Hemoglobin Concent 32.7 G/DL (32.0-36.0) Red Cell Distribution Width 14.6 % (11.6-14.8) Platelet Count 188 K/UL (150-450) Mean Platelet Volume 9.0 FL (6.5-10.1) Neutrophils (%) (Auto) 55.3 % (45.0-75.0) Lymphocytes (%) (Auto) 32.5 % (20.0-45.0) Monocytes (%) (Auto) 4.8 % (1.0-10.0) Eosinophils (%) (Auto) 5.1 % (0.0-3.0) Basophils (%) (Auto) 2.2 % (0.0-2.0) Prothrombin Time 10.6 SEC (9.30-11.50) Prothromb Time International Ratio 1.0 (0.9-1.1) Activated Partial Thromboplast Time 27 SEC (23-33) Sodium Level 147 MMOL/L (136-145) Potassium Level 4.1 MMOL/L (3.5-5.1) Chloride Level 109 MMOL/L (98-107) Carbon Dioxide Level 32 MMOL/L (21-32) Anion Gap 7 mmol/L (5-15) Blood Urea Nitrogen 20 mg/dL (7-18) Creatinine 0.7 MG/DL (0.55-1.30) Estimat Glomerular Filtration Rate > 60 mL/min (>60) Glucose Level 101 MG/DL (74-106) Lactic Acid Level 0.90 mmol/L (0.4-2.0) Calcium Level 9.6 MG/DL (8.5-10.1) Magnesium Level 2.2 MG/DL (1.8-2.4) Total Bilirubin 0.9 MG/DL (0.2-1.0) Aspartate Amino Transf (AST/SGOT) 28 U/L (15-37) Alanine Aminotransferase (ALT/SGPT) 37 U/L (12-78) Alkaline Phosphatase 87 U/L (46-116) Total Creatine Kinase 184 U/L (26-308) Troponin I 0.000 ng/mL (0.000-0.056) Pro-B-Type Natriuretic Peptide 49 pg/mL (0-125) Total Protein 7.0 G/DL (6.4-8.2) Albumin 4.0 G/DL (3.4-5.0) Globulin 3.0 g/dL Albumin/Globulin Ratio 1.3 (1.0-2.7) Urine Color Pale yellow Urine Appearance Clear Urine pH 6.5 (4.5-8.0) Urine Specific [place] 1.010 (1.005-1.035) Urine Protein Negative (NEGATIVE) Urine Glucose (UA) Negative (NEGATIVE) Urine Ketones Negative (NEGATIVE) Urine Blood Negative (NEGATIVE) Urine Nitrite Negative (NEGATIVE) Urine Bilirubin Negative (NEGATIVE) Urine Urobilinogen Normal MG/DL (0.0-1.0) Urine Leukocyte Esterase Negative (NEGATIVE) Height (Feet): 6 Height (Inches): 0.00 Weight (Pounds): 142 Objective PE Vitals: reviewed, normal General Appearance: no apparent distress, alert, non-toxic, other - Constant involuntary movements HEENT: nc, at Neck: full range of motion, supple/symm/no masses, supple Resp: chest non-tender, lungs clear, normal breath sounds Cv: regular rate, rhythm, no edema Gi: normal bowel sounds, non tender, soft, non-distended Rectal: deferred Genitourinary: normal inspection, no CVA tenderness Lymphatic: no adenopathy Jovanny Hawkins MD May 09, 2019 08:02
--- NOTE | 2019-05-09 08:56 | NUR ---
NURSE NOTES: May resume diet for now as per Dr Hawkins.
[2019-05-09] MEDS: Aspirin Baby 81mg ORAL SCH (09:07)
[2019-05-09] MEDS: Benztropine 1mg tab ORAL SCH ×3 (09:07→20:14)
[2019-05-09] MEDS: Dronabinol 2.5mg Cap ORAL SCH ×2 (09:08→17:35)
[2019-05-09] MEDS: levOCARNitine 330mg tab ORAL SCH ×3 (09:08→17:36)
[2019-05-09] MEDS: Vitamin D 1000 IU Tab ORAL SCH (09:08)
--- NOTE | 2019-05-09 09:59 | Pulmonology Progress Note ---
Assessment/Plan Assessment/Plan IMPRESSION: 1. Failure to thrive. 2. Hypernatremia. 3. No evidence for pneumonia or concern regarding coronavirus. DISCUSSION: At this time, he is considered low risk for coronavirus. Defer further documentation per ID specialist. I will follow as eyeglass frame truer. Hematology consultation is noted. Maurice Bourgeois M.D. Subjective Interval Events: Looking better Constitutional: Reports: no symptoms HEENT: Repors: no symptoms Respiratory: Reports: no symptoms Cardiovascular: Reports: no symptoms Allergies: Coded Allergies: No Known Allergies (Unverified , 05/07/19) Objective Last 24 Hour Vital Signs Date Time Temp Pulse Resp B/P (MAP) Pulse Ox O2 Delivery O2 Flow Rate FiO2 05/09/19 09:08 63 121/63 05/09/19 08:00 97.2 63 18 121/63 (82) 98 05/09/19 04:00 98.3 76 20 126/64 (84) 98 05/09/19 00:00 98.5 72 18 120/68 (85) 98 05/08/19 21:00 Room Air 05/08/19 20:00 98.0 69 20 115/65 (82) 99 05/08/19 16:03 Room Air 05/08/19 16:00 98.9 62 18 129/88 (102) 99 05/08/19 12:00 98.2 60 18 132/79 (96) 94 Intake and Output 05/08/19 05/09/19 19:00 07:00 Intake Total 1040 ml 600 ml Output Total 1 ml Balance 1039 ml 600 ml Intake Oral 800 ml IV Total 240 ml 600 ml Output Stool Total 1 ml # Voids 5 5 # Bowel Movements 1 1 General Appearance: no acute distress HEENT: normocephalic Respiratory/Chest: chest wall non-tender Cardiovascular: normal peripheral pulses Microbiology Date/Time Source Procedure Growth Status 05/07/19 16:40 Blood Blood Culture - Preliminary NO GROWTH AFTER 24 HOURS Resulted 05/07/19 16:30 Blood Blood Culture - Preliminary NO GROWTH AFTER 24 HOURS Resulted 05/07/19 16:40 Nasal Nares - Final Complete 05/07/19 16:40 Nasal Nares - Final Complete Current Medications Medications (Trade) Dose Ordered Sig/Alley Route PRN Reason Start Time Stop Time Status Last Admin Dose Admin Acetaminophen (Tylenol) 500 mg Q4H PRN ORAL Mild Pain/Temp > 100.5 05/07/19 23:00 06/06/19 22:59 Al Hydroxide/Mg Hydroxide (Mylanta) 30 ml Q4H PRN ORAL GI distress 05/07/19 23:45 06/06/19 23:44 Amlodipine Besylate (Norvasc) 10 mg DAILY ORAL 05/08/19 09:00 06/07/19 08:59 05/09/19 09:08 Aspirin (ASA) 81 mg DAILY ORAL 05/08/19 09:00 06/22/19 08:59 05/09/19 09:07 Atorvastatin Calcium (Lipitor) 20 mg BEDTIME ORAL 05/08/19 21:00 08/06/19 20:59 05/08/19 20:42 Barium Sulfate (Readi-Cat 2) 450 ml NOW PRN ORAL Radiology Procedure 05/08/19 07:00 05/10/19 06:48 Benztropine Mesylate (Cogentin) 0.5 mg BID ORAL 05/08/19 09:00 06/07/19 08:59 05/09/19 09:07 Divalproex Sodium (Depakote) 500 mg Q12HR ORAL 05/08/19 21:00 06/07/19 20:59 05/09/19 09:09 Dronabinol (Marinol) 2.5 mg BID ORAL 05/08/19 18:00 08/06/19 17:59 05/09/19 09:08 Iohexol (OMNIPAQUE-300 100ml) 100 ml ONCE PRN INJ RADIOLOGY 05/08/19 07:00 06/07/19 06:59 Levocarnitine (L-Carnitine) 330 mg TID ORAL 05/08/19 09:00 08/06/19 08:59 05/09/19 09:08 Lorazepam (Ativan) 1 mg Q6H PRN ORAL For Anxiety 05/08/19 13:45 05/15/19 13:44 05/09/19 06:07 Magnesium Hydroxide (Mom) 30 ml DAILY PRN ORAL Constipation 05/07/19 23:45 06/06/19 23:44 Mirtazapine (Remeron) 7.5 mg BEDTIME ORAL 05/08/19 21:00 08/06/19 20:59 05/08/19 20:42 Multivitamins (Multivitamins) 1 tab DAILY ORAL 05/08/19 09:00 06/07/19 08:59 05/09/19 09:08 Quetiapine Fumarate (SEROqueL) 100 mg BEDTIME ORAL 05/08/19 21:00 06/22/19 20:59 05/08/19 20:42 Sodium Chloride 1,000 ml @ 60 mls/hr [id number] IV 05/07/19 23:15 06/06/19 23:14 05/09/19 09:07 Vitamin D (Vitamin D) 2,000 intlu DAILY ORAL 05/08/19 09:00 06/07/19 08:59 05/09/19 09:08 Maurice Bourgeois MD May 09, 2019 09:59
--- NOTE | 2019-05-09 11:23 | Infectious Diseases Prog Note ---
Assessment/Plan Assessment/Plan IMPRESSION & plan: Failure to thrive with weight loss, seems multifactorial, has dementia, psychosis, Parkinson disease, anemia, hyperlipidemia. The patient does not have the criteria for testing and isolation for coronavirus disease 19 so recommendation is to stop airborne isolation. Case was discussed with nurs Subjective ROS Limited/Unobtainable: Yes Neurologic: Reports: confusion, other - on restraint Allergies: Coded Allergies: No Known Allergies (Unverified , 05/07/19) Objective Vital Signs Last 24 Hour Vital Signs Date Time Temp Pulse Resp B/P (MAP) Pulse Ox O2 Delivery O2 Flow Rate FiO2 05/09/19 09:08 63 121/63 05/09/19 09:00 Room Air 05/09/19 08:00 97.2 63 18 121/63 (82) 98 05/09/19 04:00 98.3 76 20 126/64 (84) 98 05/09/19 00:00 98.5 72 18 120/68 (85) 98 05/08/19 21:00 Room Air 05/08/19 20:00 98.0 69 20 115/65 (82) 99 05/08/19 16:03 Room Air 05/08/19 16:00 98.9 62 18 129/88 (102) 99 05/08/19 12:00 98.2 60 18 132/79 (96) 94 Height (Feet): 6 Height (Inches): 0.00 Weight (Pounds): 142 General Appearance: no acute distress HEENT: mucous membranes moist Respiratory/Chest: lungs clear Cardiovascular: normal rate Abdomen: soft, non tender Extremities: no edema Neurologic/Psychiatric: alert, disoriented, other - ? chorea Microbiology Date/Time Source Procedure Growth Status 05/07/19 16:40 Blood Blood Culture - Preliminary NO GROWTH AFTER 24 HOURS Resulted 05/07/19 16:30 Blood Blood Culture - Preliminary NO GROWTH AFTER 24 HOURS Resulted 05/07/19 16:40 Nasal Nares - Final Complete 05/07/19 16:40 Nasal Nares - Final Complete Current Medications Medications (Trade) Dose Ordered Sig/Alley Route PRN Reason Start Time Stop Time Status Last Admin Dose Admin Acetaminophen (Tylenol) 500 mg Q4H PRN ORAL Mild Pain/Temp > 100.5 05/07/19 23:00 06/06/19 22:59 Al Hydroxide/Mg Hydroxide (Mylanta) 30 ml Q4H PRN ORAL GI distress 05/07/19 23:45 06/06/19 23:44 Amlodipine Besylate (Norvasc) 10 mg DAILY ORAL 05/08/19 09:00 06/07/19 08:59 05/09/19 09:08 Aspirin (ASA) 81 mg DAILY ORAL 05/08/19 09:00 06/22/19 08:59 05/09/19 09:07 Atorvastatin Calcium (Lipitor) 20 mg BEDTIME ORAL 05/08/19 21:00 08/06/19 20:59 05/08/19 20:42 Barium Sulfate (Readi-Cat 2) 450 ml NOW PRN ORAL Radiology Procedure 05/08/19 07:00 05/10/19 06:48 Benztropine Mesylate (Cogentin) 0.5 mg BID ORAL 05/08/19 09:00 06/07/19 08:59 05/09/19 09:07 Divalproex Sodium (Depakote) 500 mg Q12HR ORAL 05/08/19 21:00 06/07/19 20:59 05/09/19 09:09 Dronabinol (Marinol) 2.5 mg BID ORAL 05/08/19 18:00 08/06/19 17:59 05/09/19 09:08 Iohexol (OMNIPAQUE-300 100ml) 100 ml ONCE PRN INJ RADIOLOGY 05/08/19 07:00 06/07/19 06:59 Levocarnitine (L-Carnitine) 330 mg TID ORAL 05/08/19 09:00 08/06/19 08:59 05/09/19 09:08 Lorazepam (Ativan) 1 mg Q6H PRN ORAL For Anxiety 05/08/19 13:45 05/15/19 13:44 05/09/19 06:07 Magnesium Hydroxide (Mom) 30 ml DAILY PRN ORAL Constipation 05/07/19 23:45 06/06/19 23:44 Mirtazapine (Remeron) 7.5 mg BEDTIME ORAL 05/08/19 21:00 08/06/19 20:59 05/08/19 20:42 Multivitamins (Multivitamins) 1 tab DAILY ORAL 05/08/19 09:00 06/07/19 08:59 05/09/19 09:08 Quetiapine Fumarate (SEROqueL) 100 mg BEDTIME ORAL 05/08/19 21:00 06/22/19 20:59 05/08/19 20:42 Sodium Chloride 1,000 ml @ 60 mls/hr [id number] IV 05/07/19 23:15 06/06/19 23:14 05/09/19 09:07 Vitamin D (Vitamin D) 2,000 intlu DAILY ORAL 05/08/19 09:00 06/07/19 08:59 05/09/19 09:08 Jhony Hamlin MD May 09, 2019 11:23
[2019-05-09 12:00] VITALS: BP 121/69
--- NOTE | 2019-05-09 13:13 | NUR ---
CASE MANAGEMENT:REVIEW SI;FAILURE TO THRIVE W/WEIGHT LOSS 98.5 76 20 126/64 98% ON RA NO LABS AVAILABLE IS;REMERON PO HS SEROQUEL PO HS DEPAKOTE PO Q12 HRS MARINOL PO BID ASA PO QD LEVOCARNITINE PO TID IVF NS @ 60 ML/HR MED SURG STATUS DCP;FROM [facility] PLAN OF CARE; CANCER RULE OUT, TUMOR MARKERS ORDERED POSSIBLE PEG DAILY PT
--- NOTE | 2019-05-09 14:10 | NUR ---
NURSE NOTES: Spoke with CT scan staff, said to do CT scan of chest, abdomen and pelvis tomorrow. For NPO post midnight tonight 05/09.
[2019-05-09 16:00] VITALS: BP 141/79
--- NOTE | 2019-05-09 19:20 | NUR ---
NURSE NOTES: Received patient in bed. Awake, alert x1. On room air, respirations unlabored. On bilateral soft wrist restraints, hands are warm and normal color for ethnicity. Condom catheter off, d/c per patient. SCD in place. IV in the right upper arm, site intact. Side rails padded. Patient sitting in semi-fowlers, bed rails up x2, bed locked, bed alarm on. Call light within reach.
--- NOTE | 2019-05-09 19:20 | NUR ---
NURSE NOTES: Patient for NPO post midnight except meds and ice chips, for CT chest abdomen pelvis tomorrow.
--- NOTE | 2019-05-09 19:34 | NUR ---
HAND-OFF: Report given to
[2019-05-09 20:00] VITALS: BP 117/71
[2019-05-09] MEDS: Atorvastatin 20mg tab ORAL SCH (20:15)
--- NOTE | 2019-05-09 20:52 | General Progress Note ---
Assessment/Plan Problem List: (1) Failure to thrive SNOMED: 81853098 Status: progressing Assessment/Plan: FTT wt loss work up in progross agitated psych patient afebrile Subjective ROS Limited/Unobtainable: Yes Allergies: Coded Allergies: No Known Allergies (Unverified , 05/07/19) Objective Last 24 Hour Vital Signs Date Time Temp Pulse Resp B/P (MAP) Pulse Ox O2 Delivery O2 Flow Rate FiO2 05/09/19 20:00 98.0 81 20 117/71 (86) 99 05/09/19 18:52 Room Air 05/09/19 16:00 98.4 87 20 141/79 (99) 97 05/09/19 12:00 97.9 77 18 121/69 (86) 98 05/09/19 09:08 63 121/63 05/09/19 09:00 Room Air 05/09/19 08:00 97.2 63 18 121/63 (82) 98 05/09/19 04:00 98.3 76 20 126/64 (84) 98 05/09/19 00:00 98.5 72 18 120/68 (85) 98 05/08/19 21:00 Room Air Intake and Output 05/08/19 05/09/19 19:00 07:00 Intake Total 1040 ml 600 ml Output Total 1 ml Balance 1039 ml 600 ml Intake Oral 800 ml IV Total 240 ml 600 ml Stool Total 1 ml # Voids 5 5 # Bowel Movements 1 1 Height (Feet): 6 Height (Inches): 0.00 Weight (Pounds): 142 Yevgeniy Sprague MD May 09, 2019 20:52
--- NOTE | 2019-05-09 22:00 | Progress Note ---
DATE: 05/09/2019 SUBJECTIVE: The patient is in bed. No behavior issues noted today. The patient has psychomotor agitation and tardive dyskinesia. The patient has poor insight. Compliant with oral medications. MENTAL STATUS EXAMINATION: The patient is awake, confused, disoriented. Mood is agitated. Affect is flat. Thought process is concrete. Thought content, no suicidal or homicidal ideation. ASSESSMENT: Stable. PLAN: 1. We will continue current medications. 2. Provide the patient with reality orientation and supportive therapy. Shira Estrella M.D. DR: HELEN JOB#: [id number] CC:
[2019-05-10] VITALS (7 sets, daily range): BP systolic 105–138; BP diastolic 55–75
--- NOTE | 2019-05-10 02:32 | NUR ---
NURSE NOTES: Per Henry from [facility], patient positive for MRSA nares. Will inform Dr. Sprague. Patient already in single room for isolation.
[2019-05-10] MEDS: LORazepam 1mg tab ORAL PRN ×2 (04:09→16:05)
--- NOTE | 2019-05-10 06:30 | NUR ---
NURSE NOTES: Left message for Dr. Sprague regarding MRSA nares. Awaiting call back.
--- NOTE | 2019-05-10 07:23 | NUR ---
HAND-OFF: Report given to Koko CORTES.
--- NOTE | 2019-05-10 07:35 | NUR ---
NURSE NOTES: received report from SEBASTIAN Epps. patient in bed. sleeping. no respiratory distress noted. no facial grimacing. IV on GILLIAN 22 running 1/2ns@60/hr. condom cath draining. yellow. soft restraint on both wrists. NPO for CT abd/pel today. bed in the lowest position and locked. call light within reach. will continue to provide plan of care.
[2019-05-10 08:25] LABS: BASOPHILS % (AUTO) 1.6 % (0.0-2.0); EOSINOPHILS % (AUTO) 5.8 % (0.0-3.0); HEMATOCRIT 39.6 % (42.0-52.0); HEMOGLOBIN 13.7 G/DL (14.2-18.0); LYMPHOCYTES % (AUTO) 39.3 % (20.0-45.0); MEAN CORPUSCULAR VOLUME 91 FL (80-99); MONOCYTES % (AUTO) 6.9 % (1.0-10.0); NEUTROPHILS % (AUTO) 46.4 % (45.0-75.0); PLATELET COUNT 166 K/UL (150-450); RED BLOOD COUNT 4.34 M/UL (4.70-6.10); RED CELL DISTRIBUTION WIDTH 13.1 % (11.6-14.8); WHITE BLOOD COUNT 5.1 K/UL (4.8-10.8)
[2019-05-10] MEDS: Benztropine 1mg tab ORAL SCH ×3 (08:40→20:28)
[2019-05-10] MEDS: Aspirin Baby 81mg ORAL SCH (08:40)
[2019-05-10] MEDS: levOCARNitine 330mg tab ORAL SCH ×3 (08:40→17:19)
[2019-05-10] MEDS: Dronabinol 2.5mg Cap ORAL SCH ×2 (08:40→17:19)
[2019-05-10] MEDS: Vitamin D 1000 IU Tab ORAL SCH (08:40)
--- NOTE | 2019-05-10 08:40 | NUR ---
NURSE NOTES: resumed regular diet.
--- NOTE | 2019-05-10 08:53 | NUR ---
NURSE NOTES: patient refused CT scan. notified Dr. Hawkins. no new order at this time. is aware.
--- NOTE | 2019-05-10 09:29 | General Progress Note ---
Assessment/Plan Status: progressing Assessment/Plan: 1. Hypertension. 2. Hypercholesterolemia. 3. Psychiatric disorder including schizophrenia and depression. 4. Anemia. 5. Dementia. 6. Anxiety. 7. Parkinson disease. 8. FTT psych in put appreciated on marinol fu calorie count currently npo for abd CT PEG plans on hold for now Subjective ROS Limited/Unobtainable: No Allergies: Coded Allergies: No Known Allergies (Unverified , 05/07/19) Objective Last 24 Hour Vital Signs Date Time Temp Pulse Resp B/P (MAP) Pulse Ox O2 Delivery O2 Flow Rate FiO2 05/10/19 09:00 Room Air 05/10/19 08:41 58 114/68 05/10/19 08:00 97.6 58 19 114/68 (83) 99 05/10/19 04:00 98.1 79 19 125/67 (86) 95 05/10/19 00:00 98.6 82 19 128/75 (92) 96 05/09/19 21:00 Room Air 05/09/19 20:00 98.0 81 20 117/71 (86) 99 05/09/19 18:52 Room Air 05/09/19 16:00 98.4 87 20 141/79 (99) 97 05/09/19 12:00 97.9 77 18 121/69 (86) 98 Intake and Output 05/09/19 05/10/19 19:00 07:00 Intake Total 1240 ml 840 ml Output Total 800 ml Balance 440 ml 840 ml Intake Oral 940 ml 300 ml IV Total 300 ml 540 ml Output Urine Total 800 ml # Voids 1 Laboratory Tests 05/10/19 06:10: White Blood Count 5.1, Red Blood Count 4.34L, Hemoglobin 13.7L, Hematocrit 39.6L , Mean Corpuscular Volume 91, Mean Corpuscular Hemoglobin 31.5H, Mean Corpuscular Hemoglobin Concent 34.6, Red Cell Distribution Width 13.1, Platelet Count 166, Mean Platelet Volume 7.5, Neutrophils (%) (Auto) 46.4, Lymphocytes (% ) (Auto) 39.3, Monocytes (%) (Auto) 6.9, Eosinophils (%) (Auto) 5.8H, Basophils (%) (Auto) 1.6 Height (Feet): 6 Height (Inches): 0.00 Weight (Pounds): 142 General Appearance: confused EENT: normal ENT inspection Neck: supple Cardiovascular: normal rate Respiratory/Chest: decreased breath sounds Abdomen: normal bowel sounds, non tender, soft Extremities: non-tender Chilango Hunter MD May 10, 2019 09:29
--- NOTE | 2019-05-10 10:43 | Pulmonology Progress Note ---
Assessment/Plan Assessment/Plan IMPRESSION: 1. Failure to thrive. 2. Hypernatremia. 3. No evidence for pneumonia or concern regarding coronavirus. DISCUSSION: At this time, he is considered low risk for coronavirus. Defer further documentation per ID specialist. I will follow as film library clerk. Hematology consultation is noted. Maurice Bourgeois M.D. Subjective Interval Events: Saturating well on RA Constitutional: Reports: no symptoms HEENT: Repors: no symptoms Respiratory: Reports: no symptoms Cardiovascular: Reports: no symptoms Allergies: Coded Allergies: No Known Allergies (Unverified , 05/07/19) Objective Last 24 Hour Vital Signs Date Time Temp Pulse Resp B/P (MAP) Pulse Ox O2 Delivery O2 Flow Rate FiO2 05/10/19 09:00 Room Air 05/10/19 08:41 58 114/68 05/10/19 08:00 97.6 58 19 114/68 (83) 99 05/10/19 04:00 98.1 79 19 125/67 (86) 95 05/10/19 00:00 98.6 82 19 128/75 (92) 96 05/09/19 21:00 Room Air 05/09/19 20:00 98.0 81 20 117/71 (86) 99 05/09/19 18:52 Room Air 05/09/19 16:00 98.4 87 20 141/79 (99) 97 05/09/19 12:00 97.9 77 18 121/69 (86) 98 Intake and Output 05/09/19 05/10/19 19:00 07:00 Intake Total 1240 ml 840 ml Output Total 800 ml Balance 440 ml 840 ml Intake Oral 940 ml 300 ml IV Total 300 ml 540 ml Output Urine Total 800 ml # Voids 1 General Appearance: no acute distress HEENT: normocephalic Respiratory/Chest: chest wall non-tender Cardiovascular: normal peripheral pulses Abdomen: normal bowel sounds Microbiology Date/Time Source Procedure Growth Status 05/07/19 16:40 Blood Blood Culture - Preliminary NO GROWTH AFTER 48 HOURS Resulted 05/07/19 16:30 Blood Blood Culture - Preliminary NO GROWTH AFTER 48 HOURS Resulted 05/07/19 20:04 Nasal Nares MRSA Culture - Final Staphylococcus Aureus - Mrsa Complete 05/07/19 16:40 Nasal Nares - Final Complete 05/07/19 16:40 Nasal Nares - Final Complete 05/07/19 20:04 Rectum - Final NO CARBAPENEM-RESISTANT ENTEROBACTERI... Complete 05/07/19 20:04 Rectum VRE Culture - Final NO VANCOMYCIN RESISTANT ENTEROCOCCUS ... Complete Laboratory Tests 05/10/19 06:10: White Blood Count 5.1, Red Blood Count 4.34L, Hemoglobin 13.7L, Hematocrit 39.6L , Mean Corpuscular Volume 91, Mean Corpuscular Hemoglobin 31.5H, Mean Corpuscular Hemoglobin Concent 34.6, Red Cell Distribution Width 13.1, Platelet Count 166, Mean Platelet Volume 7.5, Neutrophils (%) (Auto) 46.4, Lymphocytes (% ) (Auto) 39.3, Monocytes (%) (Auto) 6.9, Eosinophils (%) (Auto) 5.8H, Basophils (%) (Auto) 1.6 Current Medications Medications (Trade) Dose Ordered Sig/Alley Route PRN Reason Start Time Stop Time Status Last Admin Dose Admin Acetaminophen (Tylenol) 500 mg Q4H PRN ORAL Mild Pain/Temp > 100.5 05/07/19 23:00 06/06/19 22:59 Al Hydroxide/Mg Hydroxide (Mylanta) 30 ml Q4H PRN ORAL GI distress 05/07/19 23:45 06/06/19 23:44 Amlodipine Besylate (Norvasc) 10 mg DAILY ORAL 05/08/19 09:00 06/07/19 08:59 05/09/19 09:08 Aspirin (ASA) 81 mg DAILY ORAL 05/08/19 09:00 06/22/19 08:59 05/10/19 08:40 Atorvastatin Calcium (Lipitor) 20 mg BEDTIME ORAL 05/08/19 21:00 08/06/19 20:59 05/09/19 20:15 Benztropine Mesylate (Cogentin) 0.5 mg BID ORAL 05/08/19 09:00 06/07/19 08:59 05/10/19 08:40 Benztropine Mesylate (Cogentin) 2 mg BEDTIME ORAL 05/09/19 21:00 06/08/19 20:59 05/09/19 20:14 Divalproex Sodium (Depakote) 500 mg Q12HR ORAL 05/08/19 21:00 06/07/19 20:59 05/10/19 08:40 Dronabinol (Marinol) 2.5 mg BID ORAL 05/08/19 18:00 08/06/19 17:59 05/10/19 08:40 Iohexol (OMNIPAQUE-300 100ml) 100 ml ONCE PRN INJ RADIOLOGY 05/08/19 07:00 06/07/19 06:59 Levocarnitine (L-Carnitine) 330 mg TID ORAL 05/08/19 09:00 08/06/19 08:59 05/10/19 08:40 Lorazepam (Ativan) 1 mg Q6H PRN ORAL For Anxiety 05/08/19 13:45 05/15/19 13:44 05/10/19 04:09 Magnesium Hydroxide (Mom) 30 ml DAILY PRN ORAL Constipation 05/07/19 23:45 06/06/19 23:44 Multivitamins (Multivitamins) 1 tab DAILY ORAL 05/08/19 09:00 06/07/19 08:59 05/10/19 08:40 Quetiapine Fumarate (SEROqueL) 100 mg BEDTIME ORAL 05/08/19 21:00 06/22/19 20:59 05/09/19 20:14 Sodium Chloride 1,000 ml @ 60 mls/hr [id number] IV 05/07/19 23:15 06/06/19 23:14 05/10/19 01:15 Vitamin D (Vitamin D) 2,000 intlu DAILY ORAL 05/08/19 09:00 06/07/19 08:59 05/10/19 08:40 Maurice Bourgeois MD May 10, 2019 10:43
--- NOTE | 2019-05-10 15:20 | NUR ---
NURSE NOTES: IV d/c per patient. refused to get an new IV for hydration three times. Patient has had excellent PO intakes. Notified Dr. Sprague and waiting further order
--- NOTE | 2019-05-10 15:40 | NUR ---
NURSE NOTES: received order Dr. Sprague, try to offer IV insertion to the patient. RN offered IV insertion. patient refused at this time. Explained risks and benefits. patient yelled and aggressive.
--- NOTE | 2019-05-10 16:06 | NUR ---
NURSE NOTES: Patient is agitated. trying to remove restraint. removed ID band. refusing nursing care. administered ativan 1mg tab po prn for anxiety. will monitor effectiveness of medication and anxiety.
--- NOTE | 2019-05-10 16:30 | NUR ---
NURSE NOTES: Offered IV insertion. patient refused at this time. w aggressive. yelled at the nurse. the patient said that he does not need IV.
--- NOTE | 2019-05-10 17:20 | NUR ---
NURSE NOTES: offered IV insertion again to the patient. he refused at this time. RN explained risks and benefits. patient yelled and was aggressive to the nurse. The patient said that he does not need IV.
--- NOTE | 2019-05-10 18:15 | NUR ---
NURSE NOTES: patient refused to get IV insertion at this time. RN explained risks and benefits. The patient refused aggressively. Notified Dr. Sprague and received order, DC IV fluid. order noted and carried out. The patient consumed 100% of breakfast, lunch and dinner. 500 cc of fluid by mouth.
--- NOTE | 2019-05-10 18:30 | NUR ---
NURSE NOTES: Notified Dr. Jhony Hamlin regarding positive MRSA nare. No new order at this time.
--- NOTE | 2019-05-10 19:07 | NUR ---
HAND-OFF: Report given to SEBASTIAN West.
--- NOTE | 2019-05-10 19:10 | NUR ---
NURSE NOTES: Patient awake but passive to answering questions. Breathing unlabored on room air without distress. No complaints or s/s of pain or discomfort noted at this time. No IV access, MD aware. On bilateral soft wrist restraint for patient safety. Pulses are present, skin intact, and warm to touch. Bed placed at the lowest with alarm, brake, and siderails up for safety. SCDs on and working properly. Call light placed within reach. Will continue to monitor and provide care as ordered.
[2019-05-10] MEDS: Atorvastatin 20mg tab ORAL SCH (20:28)
--- NOTE | 2019-05-10 20:35 | General Progress Note ---
Assessment/Plan Problem List: (1) Failure to thrive SNOMED: [id number] Status: progressing Assessment/Plan: FTT wt loss work up per heme/onc agitated at times appetite improved refused iv Subjective ROS Limited/Unobtainable: Yes Allergies: Coded Allergies: No Known Allergies (Unverified , 05/07/19) Objective Last 24 Hour Vital Signs Date Time Temp Pulse Resp B/P (MAP) Pulse Ox O2 Delivery O2 Flow Rate FiO2 05/10/19 20:00 98.8 88 18 108/65 (79) 96 05/10/19 16:00 98.8 71 19 123/65 (84) 97 05/10/19 12:00 97.0 82 19 138/70 (92) 97 05/10/19 09:00 Room Air 05/10/19 08:41 58 114/68 05/10/19 08:00 97.6 58 19 114/68 (83) 99 05/10/19 04:00 98.1 79 19 125/67 (86) 95 05/10/19 00:00 98.6 82 19 128/75 (92) 96 05/09/19 21:00 Room Air Intake and Output 05/09/19 05/10/19 19:00 07:00 Intake Total 1240 ml 840 ml Output Total 800 ml Balance 440 ml 840 ml Intake Oral 940 ml 300 ml IV Total 300 ml 540 ml Output Urine Total 800 ml # Voids 1 Laboratory Tests 05/10/19 06:10: White Blood Count 5.1, Red Blood Count 4.34L, Hemoglobin 13.7L, Hematocrit 39.6L , Mean Corpuscular Volume 91, Mean Corpuscular Hemoglobin 31.5H, Mean Corpuscular Hemoglobin Concent 34.6, Red Cell Distribution Width 13.1, Platelet Count 166, Mean Platelet Volume 7.5, Neutrophils (%) (Auto) 46.4, Lymphocytes (% ) (Auto) 39.3, Monocytes (%) (Auto) 6.9, Eosinophils (%) (Auto) 5.8H, Basophils (%) (Auto) 1.6 Height (Feet): 6 Height (Inches): 0.00 Weight (Pounds): 142 General Appearance: confused Yevgeniy Sprague MD May 10, 2019 20:35
--- NOTE | 2019-05-10 21:00 | NUR ---
NURSE NOTES: Taken ensure for nutritional supplement. Good PO intake. Will continue to monitor.
[2019-05-11 04:00] VITALS: BP 110/60
--- NOTE | 2019-05-11 04:40 | NUR ---
NURSE NOTES: Provided complete linen change for the bed and provided proper incontinence care throughout the shift. Patient tolerated well. Will continue to monitor.
--- NOTE | 2019-05-11 07:14 | NUR ---
HAND-OFF: Report given to SEBASTIAN Sutherland. Plan of care endorsed.
--- NOTE | 2019-05-11 07:15 | NUR ---
NURSE NOTES: received report from SEBASTIAN West. patient in bed.sleeping. no respiratory distress noted. no facial grimacing. No IV. MD is aware. soft restraint on both wrist for safetly. renew today. bed in the lowest position and locked. call light within reach. alarm on. will continue to provide plan of care.
[2019-05-11 08:00] VITALS: BP 116/65
--- NOTE | 2019-05-11 08:15 | General Progress Note ---
Assessment/Plan Status: progressing Assessment/Plan: 1. Hypertension. 2. Hypercholesterolemia. 3. Psychiatric disorder including schizophrenia and depression. 4. Anemia. 5. Dementia. 6. Anxiety. 7. Parkinson disease. 8. FTT psych in put appreciated on marinol fu calorie count eating 100 % per nurses today PEG plans on hold for now Subjective ROS Limited/Unobtainable: Yes Allergies: Coded Allergies: No Known Allergies (Unverified , 05/07/19) Objective Last 24 Hour Vital Signs Date Time Temp Pulse Resp B/P (MAP) Pulse Ox O2 Delivery O2 Flow Rate FiO2 05/11/19 08:00 97.9 53 17 116/65 (82) 99 05/11/19 04:00 97.8 81 18 110/60 (77) 96 05/10/19 23:40 98.6 78 18 105/55 (72) 98 05/10/19 21:00 Room Air 05/10/19 20:00 98.8 88 18 108/65 (79) 96 05/10/19 16:00 98.8 71 19 123/65 (84) 97 05/10/19 12:00 97.0 82 19 138/70 (92) 97 05/10/19 09:00 Room Air 05/10/19 08:41 58 114/68 Intake and Output 05/10/19 05/11/19 19:00 07:00 Intake Total 1320 ml 240 ml Balance 1320 ml 240 ml Intake Oral 240 ml IV Total 420 ml Other 900 ml # Voids 4 # Bowel Movements 1 Height (Feet): 6 Height (Inches): 0.00 Weight (Pounds): 142 General Appearance: alert EENT: normal ENT inspection Neck: supple Cardiovascular: normal rate Respiratory/Chest: decreased breath sounds Abdomen: normal bowel sounds, non tender, soft Extremities: non-tender Chilango Hunter MD May 11, 2019 08:15
[2019-05-11] MEDS: Benztropine 1mg tab ORAL SCH ×3 (09:16→20:29)
[2019-05-11] MEDS: levOCARNitine 330mg tab ORAL SCH ×3 (09:16→18:03)
[2019-05-11] MEDS: Aspirin Baby 81mg ORAL SCH (09:16)
[2019-05-11] MEDS: Vitamin D 1000 IU Tab ORAL SCH (09:16)
[2019-05-11] MEDS: Dronabinol 2.5mg Cap ORAL SCH ×2 (09:17→18:04)
--- NOTE | 2019-05-11 10:48 | Pulmonology Progress Note ---
Assessment/Plan Assessment/Plan IMPRESSION: 1. Failure to thrive. 2. Hypernatremia. 3. No evidence for pneumonia or concern regarding coronavirus. DISCUSSION: At this time, he is considered low risk for coronavirus. Defer further documentation per ID specialist. I will follow as parachute cushion installer. Hematology consultation is noted. Maurice Bourgeois M.D. Subjective Interval Events: Saturaing well on RA Constitutional: Reports: no symptoms HEENT: Repors: no symptoms Respiratory: Reports: no symptoms Cardiovascular: Reports: no symptoms Gastrointestinal/Abdominal: Reports: no symptoms Allergies: Coded Allergies: No Known Allergies (Unverified , 05/07/19) Objective Last 24 Hour Vital Signs Date Time Temp Pulse Resp B/P (MAP) Pulse Ox O2 Delivery O2 Flow Rate FiO2 05/11/19 09:00 53 116/65 05/11/19 09:00 Room Air 05/11/19 08:00 97.9 53 17 116/65 (82) 99 05/11/19 04:00 97.8 81 18 110/60 (77) 96 05/10/19 23:40 98.6 78 18 105/55 (72) 98 05/10/19 21:00 Room Air 05/10/19 20:00 98.8 88 18 108/65 (79) 96 05/10/19 16:00 98.8 71 19 123/65 (84) 97 05/10/19 12:00 97.0 82 19 138/70 (92) 97 Intake and Output 05/10/19 05/11/19 19:00 07:00 Intake Total 1320 ml 240 ml Balance 1320 ml 240 ml Intake Oral 240 ml IV Total 420 ml Other 900 ml # Voids 4 # Bowel Movements 1 General Appearance: no acute distress HEENT: normocephalic Respiratory/Chest: chest wall non-tender Cardiovascular: normal peripheral pulses Abdomen: normal bowel sounds Current Medications Medications (Trade) Dose Ordered Sig/Alley Route PRN Reason Start Time Stop Time Status Last Admin Dose Admin Acetaminophen (Tylenol) 500 mg Q4H PRN ORAL Mild Pain/Temp > 100.5 05/07/19 23:00 06/06/19 22:59 Al Hydroxide/Mg Hydroxide (Mylanta) 30 ml Q4H PRN ORAL GI distress 05/07/19 23:45 06/06/19 23:44 Amlodipine Besylate (Norvasc) 10 mg DAILY ORAL 05/08/19 09:00 06/07/19 08:59 05/09/19 09:08 Aspirin (ASA) 81 mg DAILY ORAL 05/08/19 09:00 06/22/19 08:59 05/11/19 09:16 Atorvastatin Calcium (Lipitor) 20 mg BEDTIME ORAL 05/08/19 21:00 08/06/19 20:59 05/10/19 20:28 Benztropine Mesylate (Cogentin) 0.5 mg BID ORAL 05/08/19 09:00 06/07/19 08:59 05/11/19 09:16 Benztropine Mesylate (Cogentin) 2 mg BEDTIME ORAL 05/09/19 21:00 06/08/19 20:59 05/10/19 20:28 Divalproex Sodium (Depakote) 500 mg Q12HR ORAL 05/08/19 21:00 06/07/19 20:59 05/11/19 09:17 Dronabinol (Marinol) 2.5 mg BID ORAL 05/08/19 18:00 08/06/19 17:59 05/11/19 09:17 Iohexol (OMNIPAQUE-300 100ml) 100 ml ONCE PRN INJ RADIOLOGY 05/08/19 07:00 06/07/19 06:59 Levocarnitine (L-Carnitine) 330 mg TID ORAL 05/08/19 09:00 08/06/19 08:59 05/11/19 09:16 Lorazepam (Ativan) 1 mg Q6H PRN ORAL For Anxiety 05/08/19 13:45 05/15/19 13:44 05/10/19 16:05 Magnesium Hydroxide (Mom) 30 ml DAILY PRN ORAL Constipation 05/07/19 23:45 06/06/19 23:44 Multivitamins (Multivitamins) 1 tab DAILY ORAL 05/08/19 09:00 06/07/19 08:59 05/11/19 09:17 Quetiapine Fumarate (SEROqueL) 100 mg BEDTIME ORAL 05/08/19 21:00 06/22/19 20:59 05/10/19 20:28 Vitamin D (Vitamin D) 2,000 intlu DAILY ORAL 05/08/19 09:00 06/07/19 08:59 05/11/19 09:16 Maurice Bourgeois MD May 11, 2019 10:48
--- NOTE | 2019-05-11 11:20 | NUR ---
RD ASSESSMENT & RECOMMENDATIONS SEE CARE ACTIVITY FOR COMPLETE ASSESSMENT DAILY ESTIMATED NEEDS: Needs based on FTT, Wt loss/ 64kg 30-35 kcals/kg 3197-1387 total kcals 1-1.5 g protein/kg 64-96 g total protein 25-30 mL/kg 7284-0910 total fluid mLs NUTRITION DIAGNOSIS: Increased kcal/prot needs R/T unintentional wt loss as evidenced by pt admitted w/ FTT dx w/ + unintentional wt loss per MD, unknown amount and time frame. CURRENT DIET:REGULAR + snacks BID in b/w meals + HS PO DIET RECOMMENDATIONS: Liberalized REGULAR/ texture per SERVICE STATION HELPER or as tolerated ADDITIONAL RECOMMENDATIONS: * Calibrated bedscale wt for accurate CBW, rec daily wt monitoring * Monitor PO intake closely -> Observed 100% all meals. * Updated chem panel as able * Ensure Enlive BID w/ meals * Snacks BID in b/w meals + HS * MVI x 1 as supplement
[2019-05-11 12:00] VITALS: BP 133/74
--- NOTE | 2019-05-11 13:35 | General Progress Note ---
Assessment/Plan Problem List: (1) Failure to thrive SNOMED: [id number] Status: progressing Assessment/Plan: dc planning no respiratory symptoms wt loss work up per heme/onc agitated at times appetite improved re Subjective ROS Limited/Unobtainable: Yes Allergies: Coded Allergies: No Known Allergies (Unverified , 05/07/19) Objective Last 24 Hour Vital Signs Date Time Temp Pulse Resp B/P (MAP) Pulse Ox O2 Delivery O2 Flow Rate FiO2 05/11/19 12:00 98.6 78 18 133/74 (93) 94 05/11/19 09:00 53 116/65 05/11/19 09:00 Room Air 05/11/19 08:00 97.9 53 17 116/65 (82) 99 05/11/19 04:00 97.8 81 18 110/60 (77) 96 05/10/19 23:40 98.6 78 18 105/55 (72) 98 05/10/19 21:00 Room Air 05/10/19 20:00 98.8 88 18 108/65 (79) 96 05/10/19 16:00 98.8 71 19 123/65 (84) 97 Intake and Output 05/10/19 05/11/19 19:00 07:00 Intake Total 1320 ml 240 ml Balance 1320 ml 240 ml Intake Oral 240 ml IV Total 420 ml Other 900 ml # Voids 4 # Bowel Movements 1 Height (Feet): 6 Height (Inches): 0.00 Weight (Pounds): 142 Yevgeniy Sprague MD May 11, 2019 13:35
--- NOTE | 2019-05-11 13:38 | Infectious Diseases Prog Note ---
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 P; Observe off antibiotic Contact isolation for MRSA Subjective ROS Limited/Unobtainable: Yes Constitutional: Reports: other - good appetite Neurologic: Reports: confusion, other - on restraint Allergies: Coded Allergies: No Known Allergies (Unverified , 05/07/19) Objective Vital Signs Last 24 Hour Vital Signs Date Time Temp Pulse Resp B/P (MAP) Pulse Ox O2 Delivery O2 Flow Rate FiO2 05/11/19 12:00 98.6 78 18 133/74 (93) 94 05/11/19 09:00 53 116/65 05/11/19 09:00 Room Air 05/11/19 08:00 97.9 53 17 116/65 (82) 99 05/11/19 04:00 97.8 81 18 110/60 (77) 96 05/10/19 23:40 98.6 78 18 105/55 (72) 98 05/10/19 21:00 Room Air 05/10/19 20:00 98.8 88 18 108/65 (79) 96 05/10/19 16:00 98.8 71 19 123/65 (84) 97 Height (Feet): 6 Height (Inches): 0.00 Weight (Pounds): 142 General Appearance: no acute distress HEENT: mucous membranes moist Respiratory/Chest: lungs clear Cardiovascular: normal rate Abdomen: soft, non tender Extremities: no edema Neurologic/Psychiatric: alert, disoriented Current Medications Medications (Trade) Dose Ordered Sig/Alley Route PRN Reason Start Time Stop Time Status Last Admin Dose Admin Acetaminophen (Tylenol) 500 mg Q4H PRN ORAL Mild Pain/Temp > 100.5 05/07/19 23:00 06/06/19 22:59 Al Hydroxide/Mg Hydroxide (Mylanta) 30 ml Q4H PRN ORAL GI distress 05/07/19 23:45 06/06/19 23:44 Amlodipine Besylate (Norvasc) 10 mg DAILY ORAL 05/08/19 09:00 06/07/19 08:59 05/09/19 09:08 Aspirin (ASA) 81 mg DAILY ORAL 05/08/19 09:00 06/22/19 08:59 05/11/19 09:16 Atorvastatin Calcium (Lipitor) 20 mg BEDTIME ORAL 05/08/19 21:00 08/06/19 20:59 05/10/19 20:28 Benztropine Mesylate (Cogentin) 0.5 mg BID ORAL 05/08/19 09:00 06/07/19 08:59 05/11/19 09:16 Benztropine Mesylate (Cogentin) 2 mg BEDTIME ORAL 05/09/19 21:00 06/08/19 20:59 05/10/19 20:28 Divalproex Sodium (Depakote) 500 mg Q12HR ORAL 05/08/19 21:00 06/07/19 20:59 05/11/19 09:17 Dronabinol (Marinol) 2.5 mg BID ORAL 05/08/19 18:00 08/06/19 17:59 05/11/19 09:17 Iohexol (OMNIPAQUE-300 100ml) 100 ml ONCE PRN INJ RADIOLOGY 05/08/19 07:00 06/07/19 06:59 Levocarnitine (L-Carnitine) 330 mg TID ORAL 05/08/19 09:00 08/06/19 08:59 05/11/19 12:44 Lorazepam (Ativan) 1 mg Q6H PRN ORAL For Anxiety 05/08/19 13:45 05/15/19 13:44 05/10/19 16:05 Magnesium Hydroxide (Mom) 30 ml DAILY PRN ORAL Constipation 05/07/19 23:45 06/06/19 23:44 Multivitamins (Multivitamins) 1 tab DAILY ORAL 05/08/19 09:00 06/07/19 08:59 05/11/19 09:17 Quetiapine Fumarate (SEROqueL) 100 mg BEDTIME ORAL 05/08/19 21:00 06/22/19 20:59 05/10/19 20:28 Vitamin D (Vitamin D) 2,000 intlu DAILY ORAL 05/08/19 09:00 06/07/19 08:59 05/11/19 09:16 Jhony Hamlin MD May 11, 2019 13:38
--- NOTE | 2019-05-11 14:23 | NUR ---
HAND-OFF: Report given to SEBASTIAN Bright
--- NOTE | 2019-05-11 14:24 | NUR ---
NURSE NOTES:handoff received from SEBASTIAN Sutherland. Patient received awake and alert but confused on room air, patient in bilateral wrist restraints. Patient able to make needs known, no IV access but MD is aware. Patient has condom cath, collection bag attached to the bed, patent and draining. Patient is seizure risk, side rails are padded. Will continue to monitor patient.
[2019-05-11 16:00] VITALS: BP 121/76
--- NOTE | 2019-05-11 16:29 | Hematology/Onc Progress Note ---
Assessment/Plan Assessment/Plan Assessment and Recs: # Failure to thrive --> has had recent weight loss, will need further eval but is currently refusing --> will attempt at a ct c/a/p but again refusing --> tumor markers ordered --> daily weights as needed --> PT daily --> monitor if needs mirtazapine # Anemia of chronic disease --> labs have been noted --> no bleeding at this time --> consider transf as needed --> no hemolysis is seen # Noncompliance/uncooperative initially with laboratory testing. --> again stressed importance of workup, he refuses --> Patient given 2 mg of IV Ativan which helped his un-voluntary movements. # Sinus bradycardia --> further w/u as needed per cards # Hypernatremia --> per Dr. Alejandre # Azotemia --> recommend ivf DW Staff and rn, appreciate consultation Subjective Allergies: Coded Allergies: No Known Allergies (Unverified , 05/07/19) Subjective 05/08 on marinol, peg still on hold, no bleeding 05/10 low risk for covid, bilat restraints, off abx, on contact isolation Objective Objective Current Medications Medications (Trade) Dose Ordered Sig/Alley Route PRN Reason Start Time Stop Time Status Last Admin Dose Admin Acetaminophen (Tylenol) 500 mg Q4H PRN ORAL Mild Pain/Temp > 100.5 05/07/19 23:00 06/06/19 22:59 Al Hydroxide/Mg Hydroxide (Mylanta) 30 ml Q4H PRN ORAL GI distress 05/07/19 23:45 06/06/19 23:44 Amlodipine Besylate (Norvasc) 10 mg DAILY ORAL 05/08/19 09:00 06/07/19 08:59 05/09/19 09:08 Aspirin (ASA) 81 mg DAILY ORAL 05/08/19 09:00 06/22/19 08:59 05/11/19 09:16 Atorvastatin Calcium (Lipitor) 20 mg BEDTIME ORAL 05/08/19 21:00 08/06/19 20:59 05/10/19 20:28 Benztropine Mesylate (Cogentin) 0.5 mg BID ORAL 05/08/19 09:00 06/07/19 08:59 05/11/19 09:16 Benztropine Mesylate (Cogentin) 2 mg BEDTIME ORAL 05/09/19 21:00 06/08/19 20:59 05/10/19 20:28 Divalproex Sodium (Depakote) 500 mg Q12HR ORAL 05/08/19 21:00 06/07/19 20:59 05/11/19 09:17 Dronabinol (Marinol) 2.5 mg BID ORAL 05/08/19 18:00 08/06/19 17:59 05/11/19 09:17 Iohexol (OMNIPAQUE-300 100ml) 100 ml ONCE PRN INJ RADIOLOGY 05/08/19 07:00 06/07/19 06:59 Levocarnitine (L-Carnitine) 330 mg TID ORAL 05/08/19 09:00 08/06/19 08:59 05/11/19 12:44 Lorazepam (Ativan) 1 mg Q6H PRN ORAL For Anxiety 05/08/19 13:45 05/15/19 13:44 05/10/19 16:05 Magnesium Hydroxide (Mom) 30 ml DAILY PRN ORAL Constipation 05/07/19 23:45 06/06/19 23:44 Multivitamins (Multivitamins) 1 tab DAILY ORAL 05/08/19 09:00 06/07/19 08:59 05/11/19 09:17 Quetiapine Fumarate (SEROqueL) 100 mg BEDTIME ORAL 05/08/19 21:00 06/22/19 20:59 05/10/19 20:28 Vitamin D (Vitamin D) 2,000 intlu DAILY ORAL 05/08/19 09:00 06/07/19 08:59 05/11/19 09:16 Last 24 Hour Vital Signs Date Time Temp Pulse Resp B/P (MAP) Pulse Ox O2 Delivery O2 Flow Rate FiO2 05/11/19 12:00 98.6 78 18 133/74 (93) 94 05/11/19 09:00 53 116/65 05/11/19 09:00 Room Air 05/11/19 08:00 97.9 53 17 116/65 (82) 99 05/11/19 04:00 97.8 81 18 110/60 (77) 96 05/10/19 23:40 98.6 78 18 105/55 (72) 98 05/10/19 21:00 Room Air 05/10/19 20:00 98.8 88 18 108/65 (79) 96 05/10/19 16:00 98.8 71 19 123/65 (84) 97 05/10/19 12:00 97.0 82 19 138/70 (92) 97 05/10/19 09:00 Room Air 05/10/19 08:41 58 114/68 05/10/19 08:00 97.6 58 19 114/68 (83) 99 05/10/19 04:00 98.1 79 19 125/67 (86) 95 05/10/19 00:00 98.6 82 19 128/75 (92) 96 05/09/19 21:00 Room Air 05/09/19 20:00 98.0 81 20 117/71 (86) 99 05/09/19 18:52 Room Air Intake and Output 05/10/19 05/11/19 19:00 07:00 Intake Total 1320 ml 240 ml Balance 1320 ml 240 ml Intake Oral 240 ml IV Total 420 ml Other 900 ml # Voids 4 # Bowel Movements 1 Labs Test 05/10/19 06:10 White Blood Count 5.1 K/UL (4.8-10.8) Red Blood Count 4.34 M/UL (4.70-6.10) Hemoglobin 13.7 G/DL (14.2-18.0) Hematocrit 39.6 % (42.0-52.0) Mean Corpuscular Volume 91 FL (80-99) Mean Corpuscular Hemoglobin 31.5 PG (27.0-31.0) Mean Corpuscular Hemoglobin Concent 34.6 G/DL (32.0-36.0) Red Cell Distribution Width 13.1 % (11.6-14.8) Platelet Count 166 K/UL (150-450) Mean Platelet Volume 7.5 FL (6.5-10.1) Neutrophils (%) (Auto) 46.4 % (45.0-75.0) Lymphocytes (%) (Auto) 39.3 % (20.0-45.0) Monocytes (%) (Auto) 6.9 % (1.0-10.0) Eosinophils (%) (Auto) 5.8 % (0.0-3.0) Basophils (%) (Auto) 1.6 % (0.0-2.0) Height (Feet): 6 Height (Inches): 0.00 Weight (Pounds): 142 Objective PE Vitals: reviewed, normal General Appearance: no apparent distress, alert, non-toxic, other - Constant involuntary movements HEENT: nc, at Neck: full range of motion, supple/symm/no masses, supple Resp: chest non-tender, lungs clear, normal breath sounds Cv: regular rate, rhythm, no edema Gi: normal bowel sounds, non tender, soft, non-distended Rectal: deferred Genitourinary: normal inspection, no CVA tenderness, condom cath+ Lymphatic: no adenopathy Jovanny Hawkins MD May 11, 2019 16:29
--- NOTE | 2019-05-11 19:20 | NUR ---
NURSE NOTES: Received patient in bed. Awake, Alert x1. On room air, respirations unlabored. Bilateral soft wrist restraints inplace, hands are warm and normal color for ethnicity. Condom cath on. Bed rails up x2. patient is a high fall risk, Patient is close to the nurses station for safety. Patient oriented to room and call light, patient returned demonstration. RECEIVER BULK SYSTEM and CN informed on high fall risk status. Bed alarm placed on high sensitivity. No IV in place, MD previously informed. SCD in place.
--- NOTE | 2019-05-11 19:30 | NUR ---
HAND-OFF: Report given to SEBASTIAN Epps.
[2019-05-11 20:00] VITALS: BP 117/52
[2019-05-11] MEDS: Atorvastatin 20mg tab ORAL SCH (20:29)
[2019-05-12] VITALS: BP 120/62
[2019-05-12 04:00] VITALS: BP 115/68
[2019-05-12] MEDS: LORazepam 1mg tab ORAL PRN (05:29)
--- NOTE | 2019-05-12 07:10 | NUR ---
HAND-OFF: Report given to Dandre CORTES.
--- NOTE | 2019-05-12 07:14 | Hematology/Onc Progress Note ---
Assessment/Plan Assessment/Plan Assessment and Recs: # Failure to thrive --> has had recent weight loss, will need further eval but is currently refusing --> will attempt at a ct c/a/p but again refusing --> tumor markers ordered --> daily weights as needed --> PT daily --> monitor if needs mirtazapine # Anemia of chronic disease --> labs have been noted --> no bleeding at this time --> consider transf as needed --> no hemolysis is seen --> hgb 13.7 # Noncompliance/uncooperative initially with laboratory testing. --> again stressed importance of workup, he refuses --> Patient given 2 mg of IV Ativan which helped his un-voluntary movements. # Sinus bradycardia --> further w/u as needed per cards # Hypernatremia --> per Dr. Alejandre # Azotemia --> recommend ivf DW Staff and rn, appreciate consultation Subjective Constitutional: Denies: no symptoms, chills, fever, malaise, weakness, other HEENT: Denies: no symptoms, eye pain, blurred vision, tearing, double vision, ear pain, ear discharge, nose pain, nose congestion, throat pain, throat swelling, mouth pain, mouth swelling, other Respiratory: Denies: no symptoms, cough, shortness of breath, SOB with excertion, SOB at rest, sputum, wheezing, other Gastrointestinal/Abdominal: Denies: no symptoms, abdomen distended, abdominal pain, black stools, tarry stools, blood in stool, constipated, diarrhea, difficulty swallowing, nausea, poor appetite, poor fluid intake, rectal bleeding , vomiting, other Genitourinary: Denies: no symptoms, burning, discharge, frequency, flank pain, hematuria, incontinence, pain, urgency, other Neurologic/Psychiatric: Denies: no symptoms, anxiety, depressed, emotional problems, headache, numbness, paresthesia, pre-existing deficit, seizure, tingling, tremors, weakness, other Endocrine: Denies: no symptoms, excessive sweating, flushing, intolerance to cold, intolerance to heat, increased hunger, increased thirst, increased urine, unexplained weight gain, unexplained weight loss, other Hematologic/Lymphatic: Denies: no symptoms, anemia, easy bleeding, easy bruising, adenopathy, other Allergies: Coded Allergies: No Known Allergies (Unverified , 05/07/19) Subjective 05/08 on marinol, peg still on hold, no bleeding 05/10 low risk for covid, bilat restraints, off abx, on contact isolation 05/11 no bleeding, no night sweats, remains confused, labs ordered Objective Objective Current Medications Medications (Trade) Dose Ordered Sig/Alley Route PRN Reason Start Time Stop Time Status Last Admin Dose Admin Acetaminophen (Tylenol) 500 mg Q4H PRN ORAL Mild Pain/Temp > 100.5 05/07/19 23:00 06/06/19 22:59 Al Hydroxide/Mg Hydroxide (Mylanta) 30 ml Q4H PRN ORAL GI distress 05/07/19 23:45 06/06/19 23:44 Amlodipine Besylate (Norvasc) 10 mg DAILY ORAL 05/08/19 09:00 06/07/19 08:59 05/09/19 09:08 Aspirin (ASA) 81 mg DAILY ORAL 05/08/19 09:00 06/22/19 08:59 05/11/19 09:16 Atorvastatin Calcium (Lipitor) 20 mg BEDTIME ORAL 05/08/19 21:00 08/06/19 20:59 05/11/19 20:29 Benztropine Mesylate (Cogentin) 0.5 mg BID ORAL 05/08/19 09:00 06/07/19 08:59 05/11/19 18:03 Benztropine Mesylate (Cogentin) 2 mg BEDTIME ORAL 05/09/19 21:00 06/08/19 20:59 05/11/19 20:29 Divalproex Sodium (Depakote) 500 mg Q12HR ORAL 05/08/19 21:00 06/07/19 20:59 05/11/19 20:29 Dronabinol (Marinol) 2.5 mg BID ORAL 05/08/19 18:00 08/06/19 17:59 05/11/19 18:04 Iohexol (OMNIPAQUE-300 100ml) 100 ml ONCE PRN INJ RADIOLOGY 05/08/19 07:00 06/07/19 06:59 Levocarnitine (L-Carnitine) 330 mg TID ORAL 05/08/19 09:00 08/06/19 08:59 05/11/19 18:03 Lorazepam (Ativan) 1 mg Q6H PRN ORAL For Anxiety 05/08/19 13:45 05/15/19 13:44 05/12/19 05:29 Magnesium Hydroxide (Mom) 30 ml DAILY PRN ORAL Constipation 05/07/19 23:45 06/06/19 23:44 Multivitamins (Multivitamins) 1 tab DAILY ORAL 05/08/19 09:00 06/07/19 08:59 05/11/19 09:17 Quetiapine Fumarate (SEROqueL) 100 mg BEDTIME ORAL 05/08/19 21:00 06/22/19 20:59 05/11/19 20:29 Vitamin D (Vitamin D) 2,000 intlu DAILY ORAL 05/08/19 09:00 06/07/19 08:59 05/11/19 09:16 Last 24 Hour Vital Signs Date Time Temp Pulse Resp B/P (MAP) Pulse Ox O2 Delivery O2 Flow Rate FiO2 05/12/19 04:00 97.8 67 18 115/68 (84) 95 05/12/19 00:00 98.6 73 19 120/62 (81) 97 05/11/19 21:00 Room Air 05/11/19 20:00 98.1 62 19 117/52 (73) 98 05/11/19 16:00 98.1 89 18 121/76 (91) 99 05/11/19 12:00 98.6 78 18 133/74 (93) 94 05/11/19 09:00 53 116/65 05/11/19 09:00 Room Air 05/11/19 08:00 97.9 53 17 116/65 (82) 99 05/11/19 04:00 97.8 81 18 110/60 (77) 96 05/10/19 23:40 98.6 78 18 105/55 (72) 98 05/10/19 21:00 Room Air 05/10/19 20:00 98.8 88 18 108/65 (79) 96 05/10/19 16:00 98.8 71 19 123/65 (84) 97 05/10/19 12:00 97.0 82 19 138/70 (92) 97 05/10/19 09:00 Room Air 05/10/19 08:41 58 114/68 3/21/20 08:00 97.6 58 19 114/68 (83) 99 Intake and Output 05/11/19 05/12/19 19:00 07:00 Intake Total 800 ml 100 ml Balance 800 ml 100 ml Intake Oral 100 ml Other 800 ml # Voids 2 Labs Test 05/10/19 06:10 White Blood Count 5.1 K/UL (4.8-10.8) Red Blood Count 4.34 M/UL (4.70-6.10) Hemoglobin 13.7 G/DL (14.2-18.0) Hematocrit 39.6 % (42.0-52.0) Mean Corpuscular Volume 91 FL (80-99) Mean Corpuscular Hemoglobin 31.5 PG (27.0-31.0) Mean Corpuscular Hemoglobin Concent 34.6 G/DL (32.0-36.0) Red Cell Distribution Width 13.1 % (11.6-14.8) Platelet Count 166 K/UL (150-450) Mean Platelet Volume 7.5 FL (6.5-10.1) Neutrophils (%) (Auto) 46.4 % (45.0-75.0) Lymphocytes (%) (Auto) 39.3 % (20.0-45.0) Monocytes (%) (Auto) 6.9 % (1.0-10.0) Eosinophils (%) (Auto) 5.8 % (0.0-3.0) Basophils (%) (Auto) 1.6 % (0.0-2.0) Height (Feet): 6 Height (Inches): 0.00 Weight (Pounds): 142 Objective PE Vitals: reviewed, normal General Appearance: no apparent distress, alert, non-toxic, other - Constant involuntary movements HEENT: nc, at Neck: full range of motion, supple/symm/no masses, supple Resp: chest non-tender, lungs clear, normal breath sounds Cv: regular rate, rhythm, no edema Gi: normal bowel sounds, non tender, soft, non-distended Rectal: deferred Genitourinary: normal inspection, no CVA tenderness, condom cath+ Lymphatic: no adenopathy Jovanny Hawkins MD May 12, 2019 07:14
--- NOTE | 2019-05-12 07:19 | NUR ---
NURSE NOTES: Report received from Mich CORTES. Patient is awake and alert x 1, currently eating breakfast in bed. Endorsed that patient is a high fall risk due to confusion, does not call, and unsteady on feet. Bed locked alarmed, in lowest position, and locked. Patient on bilateral soft wrist restraints for patient safety. botany laboratory assistant made aware. Patient noted to have no IV access. MD aware, no IV fluids ordered at this time. Will continue to follow plan of care.
[2019-05-12 08:00] VITALS: BP 122/74
[2019-05-12 08:46] VITALS: BP 122/74
[2019-05-12] MEDS: Aspirin Baby 81mg ORAL SCH (08:46)
[2019-05-12] MEDS: Vitamin D 1000 IU Tab ORAL SCH (08:46)
[2019-05-12] MEDS: Dronabinol 2.5mg Cap ORAL SCH (08:46)
[2019-05-12] MEDS: levOCARNitine 330mg tab ORAL SCH ×2 (08:47→12:03)
[2019-05-12] MEDS: Benztropine 1mg tab ORAL SCH (08:47)
--- NOTE | 2019-05-12 10:04 | NUR ---
DISCHARGE PLANNING PATIENT HAS BEEN REFERRED BACK TO [facility] P: [phone] F: [phone] PER ERICA, CLINICALS WILL BE REVIEWED PRIOR TO PROVIDING ROOM ASSIGNMENT Addendum: 05/12/19 at 1145 by ALIX AYON LVN LVN RECEIPT OF CLINICALS CONFIRMED WITH MICAH PATIENT ACCEPTED TO RETURN WITH FOLLOWING ROOM ASSIGNMENT [facility] AMBULANCE TRANSPORTATION SET ON WILL CALL WITH [facility] @ EXT [phone]. WILL ACTIVATE WILL CALL UPON CLEARANCE FROM DR Anant WILSON FOR DISCHARGE BACK TO [facility].
--- NOTE | 2019-05-12 10:23 | Pulmonology Progress Note ---
Assessment/Plan Assessment/Plan IMPRESSION: 1. Failure to thrive. 2. Hypernatremia. 3. No evidence for pneumonia or concern regarding coronavirus. DISCUSSION: At this time, he is considered low risk for coronavirus. Defer further documentation per ID specialist. I will follow as sewer inspector. Hematology consultation is noted. Maurice Bourgeois M.D. Subjective Interval Events: None new Constitutional: Reports: no symptoms HEENT: Repors: no symptoms Respiratory: Reports: no symptoms Cardiovascular: Reports: no symptoms Gastrointestinal/Abdominal: Reports: no symptoms Allergies: Coded Allergies: No Known Allergies (Unverified , 05/07/19) Objective Last 24 Hour Vital Signs Date Time Temp Pulse Resp B/P (MAP) Pulse Ox O2 Delivery O2 Flow Rate FiO2 05/12/19 09:00 Room Air 05/12/19 08:46 83 122/74 05/12/19 08:00 98.0 83 19 122/74 (90) 100 05/12/19 04:00 97.8 67 18 115/68 (84) 95 05/12/19 00:00 98.6 73 19 120/62 (81) 97 05/11/19 21:00 Room Air 05/11/19 20:00 98.1 62 19 117/52 (73) 98 05/11/19 16:00 98.1 89 18 121/76 (91) 99 05/11/19 12:00 98.6 78 18 133/74 (93) 94 Intake and Output 05/11/19 05/12/19 19:00 07:00 Intake Total 800 ml 100 ml Balance 800 ml 100 ml Intake Oral 100 ml Other 800 ml # Voids 2 General Appearance: no acute distress HEENT: normocephalic Respiratory/Chest: chest wall non-tender Cardiovascular: normal peripheral pulses Abdomen: normal bowel sounds Current Medications Medications (Trade) Dose Ordered Sig/Alley Route PRN Reason Start Time Stop Time Status Last Admin Dose Admin Acetaminophen (Tylenol) 500 mg Q4H PRN ORAL Mild Pain/Temp > 100.5 05/07/19 23:00 06/06/19 22:59 Al Hydroxide/Mg Hydroxide (Mylanta) 30 ml Q4H PRN ORAL GI distress 05/07/19 23:45 06/06/19 23:44 Amlodipine Besylate (Norvasc) 10 mg DAILY ORAL 05/08/19 09:00 06/07/19 08:59 05/12/19 08:46 Aspirin (ASA) 81 mg DAILY ORAL 05/08/19 09:00 06/22/19 08:59 05/12/19 08:46 Atorvastatin Calcium (Lipitor) 20 mg BEDTIME ORAL 05/08/19 21:00 08/06/19 20:59 05/11/19 20:29 Benztropine Mesylate (Cogentin) 0.5 mg BID ORAL 05/08/19 09:00 06/07/19 08:59 05/12/19 08:47 Benztropine Mesylate (Cogentin) 2 mg BEDTIME ORAL 05/09/19 21:00 06/08/19 20:59 05/11/19 20:29 Divalproex Sodium (Depakote) 500 mg Q12HR ORAL 05/08/19 21:00 06/07/19 20:59 05/12/19 08:46 Dronabinol (Marinol) 2.5 mg BID ORAL 05/08/19 18:00 08/06/19 17:59 05/12/19 08:46 Iohexol (OMNIPAQUE-300 100ml) 100 ml ONCE PRN INJ RADIOLOGY 05/08/19 07:00 06/07/19 06:59 Levocarnitine (L-Carnitine) 330 mg TID ORAL 05/08/19 09:00 08/06/19 08:59 05/12/19 08:47 Lorazepam (Ativan) 1 mg Q6H PRN ORAL For Anxiety 05/08/19 13:45 05/15/19 13:44 05/12/19 05:29 Magnesium Hydroxide (Mom) 30 ml DAILY PRN ORAL Constipation 05/07/19 23:45 06/06/19 23:44 Multivitamins (Multivitamins) 1 tab DAILY ORAL 05/08/19 09:00 06/07/19 08:59 05/12/19 08:46 Quetiapine Fumarate (SEROqueL) 100 mg BEDTIME ORAL 05/08/19 21:00 06/22/19 20:59 05/11/19 20:29 Vitamin D (Vitamin D) 2,000 intlu DAILY ORAL 05/08/19 09:00 06/07/19 08:59 05/12/19 08:46 Maurice Bourgeois MD May 12, 2019 10:23
[2019-05-12] MEDS ORDERED: LEVOCARNITINE330 M1 PO (11:39)
--- NOTE | 2019-05-12 11:52 | Infectious Diseases Prog Note ---
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 P; Observe off antibiotic Agree with discharge to SNF Case was D/W RN Subjective ROS Limited/Unobtainable: Yes Neurologic: Reports: confusion, other - on restraint Allergies: Coded Allergies: No Known Allergies (Unverified , 05/07/19) Objective Vital Signs Last 24 Hour Vital Signs Date Time Temp Pulse Resp B/P (MAP) Pulse Ox O2 Delivery O2 Flow Rate FiO2 05/12/19 09:00 Room Air 05/12/19 08:46 83 122/74 05/12/19 08:00 98.0 83 19 122/74 (90) 100 05/12/19 04:00 97.8 67 18 115/68 (84) 95 05/12/19 00:00 98.6 73 19 120/62 (81) 97 05/11/19 21:00 Room Air 05/11/19 20:00 98.1 62 19 117/52 (73) 98 05/11/19 16:00 98.1 89 18 121/76 (91) 99 05/11/19 12:00 98.6 78 18 133/74 (93) 94 Height (Feet): 6 Height (Inches): 0.00 Weight (Pounds): 142 General Appearance: no acute distress HEENT: mucous membranes moist Respiratory/Chest: lungs clear Cardiovascular: normal rate Abdomen: soft, non tender Extremities: no edema Neurologic/Psychiatric: disoriented Current Medications Medications (Trade) Dose Ordered Sig/Alley Route PRN Reason Start Time Stop Time Status Last Admin Dose Admin Acetaminophen (Tylenol) 500 mg Q4H PRN ORAL Mild Pain/Temp > 100.5 05/07/19 23:00 06/06/19 22:59 Al Hydroxide/Mg Hydroxide (Mylanta) 30 ml Q4H PRN ORAL GI distress 05/07/19 23:45 06/06/19 23:44 Amlodipine Besylate (Norvasc) 10 mg DAILY ORAL 05/08/19 09:00 06/07/19 08:59 05/12/19 08:46 Aspirin (ASA) 81 mg DAILY ORAL 05/08/19 09:00 06/22/19 08:59 05/12/19 08:46 Atorvastatin Calcium (Lipitor) 20 mg BEDTIME ORAL 05/08/19 21:00 08/06/19 20:59 05/11/19 20:29 Benztropine Mesylate (Cogentin) 0.5 mg BID ORAL 05/08/19 09:00 06/07/19 08:59 05/12/19 08:47 Benztropine Mesylate (Cogentin) 2 mg BEDTIME ORAL 05/09/19 21:00 06/08/19 20:59 05/11/19 20:29 Divalproex Sodium (Depakote) 500 mg Q12HR ORAL 05/08/19 21:00 06/07/19 20:59 05/12/19 08:46 Dronabinol (Marinol) 2.5 mg BID ORAL 05/08/19 18:00 08/06/19 17:59 05/12/19 08:46 Iohexol (OMNIPAQUE-300 100ml) 100 ml ONCE PRN INJ RADIOLOGY 05/08/19 07:00 06/07/19 06:59 Levocarnitine (L-Carnitine) 330 mg TID ORAL 05/08/19 09:00 08/06/19 08:59 05/12/19 08:47 Lorazepam (Ativan) 1 mg Q6H PRN ORAL For Anxiety 05/08/19 13:45 05/15/19 13:44 05/12/19 05:29 Magnesium Hydroxide (Mom) 30 ml DAILY PRN ORAL Constipation 05/07/19 23:45 06/06/19 23:44 Multivitamins (Multivitamins) 1 tab DAILY ORAL 05/08/19 09:00 06/07/19 08:59 05/12/19 08:46 Quetiapine Fumarate (SEROqueL) 100 mg BEDTIME ORAL 05/08/19 21:00 06/22/19 20:59 05/11/19 20:29 Vitamin D (Vitamin D) 2,000 intlu DAILY ORAL 05/08/19 09:00 06/07/19 08:59 05/12/19 08:46 Jhony Hamlin MD May 12, 2019 11:51
--- NOTE | 2019-05-12 12:16 | NUR ---
NURSE NOTES: [facility] but was put on hold longer than 5 minutes , will attempt again primary nurse made aware
--- NOTE | 2019-05-12 12:55 | NUR ---
NURSE NOTES: [facility] here for discharge of patient. Report given to [facility]. Report given to accepting facility per Chidi Sánchez RN. Patient has no IV access. Patient is aware of discharge. Vital signs within normal limits. Patient has no complaints at this time. Patient is alert and oriented x 2. Patient safely transferred to [facility]. All personal belongings given to ambulance drivers. patient leaving in stable condition.
--- NOTE | 2019-05-12 22:52 | General Progress Note ---
Assessment/Plan Status: progressing Assessment/Plan: Assessment/Plan Status: progressing Assessment/Plan: 1. Hypertension. 2. Hypercholesterolemia. 3. Psychiatric disorder including schizophrenia and depression. 4. Anemia. 5. Dementia. 6. Anxiety. 7. Parkinson disease. 8. FTT / Anorexia Recommendations psych in put appreciated on marinol fu calorie count eating 100 % per nurses today No plans for PEG Subjective Allergies: Coded Allergies: No Known Allergies (Unverified , 05/07/19) Subjective above noted seen earlier today tolerating PO Objective Last 24 Hour Vital Signs Date Time Temp Pulse Resp B/P (MAP) Pulse Ox O2 Delivery O2 Flow Rate FiO2 05/12/19 09:00 Room Air 05/12/19 08:46 83 122/74 05/12/19 08:00 98.0 83 19 122/74 (90) 100 05/12/19 04:00 97.8 67 18 115/68 (84) 95 05/12/19 00:00 98.6 73 19 120/62 (81) 97 Intake and Output 05/11/19 05/12/19 19:00 07:00 Intake Total 800 ml 100 ml Balance 800 ml 100 ml Intake Oral 100 ml Other 800 ml # Voids 2 Height (Feet): 6 Height (Inches): 0.00 Weight (Pounds): 142 Objective debilitated AA man neck supple CTA RRR abd Matthew Duenas MD May 12, 2019 22:52
--- NOTE | 2019-05-13 09:52 | Discharge Summary ---
Discharge Summary Discharge Summary _ DATE OF ADMISSION: 05/07/2019 DATE OF DISCHARGE: 05/12/2019 DISCHARGED BY: Dr. Sprague REASON FOR ADMISSION: 68 years old male with past medical history of hypertension, hyperlipidemia, anemia, Parkinson disease, dementia, schizophrenia, bipolar disorder, depression , anxiety, was brought from [facility] intermediate facility [facility] due to failure to thrive. Apparently patient had unintentional weight loss of 30 pounds , and primary care physician sent him for further work-up . Upon evaluation vital signs were stable. Laboratory work-up revealed no leukocytosis, stable hemoglobin, hematocrit, and platelet count. Sodium 147. BUN 20, creatinine 0.7. Lactic acid 0.9. Troponin negative. Stable LFT . Albumin 4.0. Urinalysis revealed no evidence of urinary tract infection. Chest x-ray demonstrated no acute cardiopulmonary pathology. Patient admitted for weight loss and failure to thrive. CONSULTANTS: pulmonary Dr. Bourgeois ID specialist Dr. Hamlin GI specialist Dr. العراقي high school librarian/oncologist Dr. Hawkins psychiatrist HOSPITAL COURSE: Patient admitted to medical surgical floor. Patient started on the IV hydration. GI specialist followed. Calorie count instituted. Patient started on Marinol. Patient was on daily weight. Per nutritional assessment patient was at moderate risk for malnutrition. Protein supplements provided as per tensioning machine operator recommendation. Per land degradation analyst . no evidence of pneumonia on chest x-ray. Low risk for coronavirus. Supplemental oxygen was on board as needed to keep oximetry above 92%. Pulse oximetry remained stable on room air. Blood cultures were negative. Influenza swab was negative. ID specialist recommended to keep patient off antibiotics. Patent Chemist/ oncologist seen and evaluated patient. Patient required further evaluation regarding recent weight loss h. CT scan of the chest , abdomen and pelvis was ordered along with tumor markers. Patient declined test and further labs draw. Psychiatric evaluation was requested. Per psychiatrist , patient had schizoaffective disorder bipolar type along with dementia. Patient started on Depakote and Seroquel. Reality orientation and supportive therapy provided. Patient was eating 100% of food. Patient actually gained few pounds while in the hospital. No plan for PEG at this time as per GI specialist. Patient clinically stabilized and was discharged to intermediate facility . Continue current psychiatric medication. Reinforced compliance with medication regimen . Continue monitor oral intake and weight at the facility FINAL DIAGNOSES: Failure to thrive Weight loss Hypertension Hypercholesterolemia Schizoaffective disorder, bipolar type. Dementia. Depression Parkinson disease Noncompliance Anemia of chronic disease Hypernatremia DISCHARGE MEDICATIONS: See Medication Reconciliation list. DISCHARGE INSTRUCTIONS: Patient was discharged to the intermediate facility. Follow up with medical doctor at the facility. I have been assigned to dictate discharge summary for this account. I was not involved in the patient's management. Shahnaz Chu NP May 13, 2019 09:52
== END 2019-05-12 13:03 | DRG 641 ==
LOC: EDBD 13:34 → EDBEDREQ 15:38 → EMR 16:51 → OBSVTOIN 17:03 → 4E 17:03 → EDBEDREQ 21:29 → EMR 21:35 → 4E 05-08 02:30
DX: R62.7 Adult failure to thrive (principal); E87.0 Hyperosmolality and hypernatremia; F20.89 Other schizophrenia; F32.3 Major depressive disorder, single episode, severe with psychotic features; Z79.82 Long term (current) use of aspirin; R63.4 Abnormal weight loss; F03.90 Unspecified dementia, unspecified severity, without behavioral disturbance, psychotic disturbance, mood disturbance, and anxiety; G20 Parkinson's disease; F32.9 Major depressive disorder, single episode, unspecified; F41.9 Anxiety disorder, unspecified; Z22.322 Carrier or suspected carrier of Methicillin resistant Staphylococcus aureus; Z91.19 Patient's noncompliance with other medical treatment and regimen; E78.5 Hyperlipidemia, unspecified
CPT/HCPCS: 36415; 71045; 80053; 81003; 82550; 83605; 83735; 83880; 84484; 85025; 85610; 85730; 86710; 87040; 87081; 93005; 96360; 96372; 99285; J7030